=== PATIENT | female | born 1990 | race Caucasian/White ===

== ENCOUNTER 2017-01-08 22:29 | Emergency (ER) | payer OTHER ==
[~2017-01-08] VITALS: Ht 149.9 cm; Wt 60.7 kg
[~2017-01-08 22:29] MED LIST: ALBU18HF IH; DIPH-121 PO; ONDA4TAB10 PO; PRED15SO46 PO
[2017-01-08] MEDS ORDERED: IV NORMAL SALINE 1,000ML 1,000 ML IV SCH (23:19)
[2017-01-08] MEDS ORDERED: MORPHINE SULFATE 4 MG/ML DISP.SYRIN. IV/SQ PRN (23:30)
[2017-01-08] MEDS ORDERED: FAMOTIDINE 20 MG/2 ML VIAL IVP ONE (23:30)
[2017-01-08] MEDS ORDERED: KETOROLAC 30 MG/ML VIAL. IV ONE (23:30)
[2017-01-08] MEDS ORDERED: ONDANSETRON PF 4 MG/2 ML VIAL. IV ONE (23:30)
[2017-01-08 23:56] LABS: BASO # 0.1 x10^3/uL (0.0-0.2); BASO % 0 % (0-3); EOS # 0.1 x10^3/uL (0.0-0.7); EOS % 1 % (0-3); HEMATOCRIT 32.6 % (36.0-47.0); LYMPH # 1.6 x10^3/uL (1.0-4.8); LYMPH % 10 % (24-48); MEAN CORPUSCULAR HEMOGLOBIN 24 pg (25-35); MEAN CORPUSCULAR HGB CONC 31 g/dL (31-37); MEAN CORPUSCULAR VOLUME 78 fL (79-100); MONO # 0.7 x10^3/uL (0.0-1.1); MONO % 4 % (0-9); NEUT # 13.9 x10^3uL (1.8-7.7); NEUT % 85 % (31-73); PLATELET COUNT 306 x10^3/uL (140-400); RED BLOOD COUNT 4.19 x10^6/uL (3.50-5.40); RED CELL DISTRIBUTION WIDTH 18.7 % (11.5-14.5); WHITE BLOOD COUNT 16.4 x10^3/uL (4.0-11.0)
[2017-01-09 00:02] LABS: AMPHETAMINE/METHAMPHETAMINE NEG (NEG); BARBITURATES NEG (NEG); BENZODIAZEPINES NEG (NEG); CANNABINOIDS POS (NEG); COCAINE NEG (NEG); METHADONE NEG (NEG); OPIATES POS (NEG); PHENCYCLIDINE NEG (NEG)
--- NOTE | 2017-01-09 00:04 | PHYS DOC ---
General Chief Complaint: ABDOMINAL PAIN Stated Complaint: VOMITING,ABD PAIN Time Seen by MD: 23:04 Source: patient Exam Limitations: no limitations Problems: History of Present Illness Initial Comments Patient is a 26-year-old female brought to the ED by parent with abdominal discomfort and vomiting. Patient has history of bipolar disorder GERD and irritable bowel syndrome, she also has history of chronic nausea and vomiting. Patient states that for the past few days she has had increased vomiting/diarrhea and upper abdominal discomfort. She says she's also had loose stools last bowel movement was earlier today described as watery no blood noted. Patient denies travel or bad food exposure she has seen no blood in her emesis and denies fever chills sweats or myalgias. She is a vague historian, she denies relation of by mouth intake or type of by mouth intake and correlation of symptoms. Discomfort is upper abdomen described as crampy and achy moderate in intensity worse with certain movements and better with rest. No radiating pain symptoms, specifically no radiation to back/flank/shoulder blade. Appetite is intact. Patient denies as she is not heterosexual. Recently diagnosed with gallstones. Timing/Duration: unsure Severity: moderate Modifying Factors: worse with movement, improves with rest Associated Symptoms: nausea/vomiting, other Allergies: Coded Allergies: No Known Drug Allergies (Unverified , 12/02/15) Past Medical History Medical History: other (cerebral palsy, bipolar disorder, GERD, irritable bowel syndrome, constipation, chronic vomiting) Surgical History: noncontributory Social History Smoker: cigarettes Alcohol: none Drugs: marijuana Review of Systems Constitutional: denies chills, denies diaphoresis, denies fever, denies malaise Respiratory: denies cough, denies shortness of breath, denies wheezing Cardiovascular: denies chest pain, denies palpitations, denies syncope Gastrointestinal: see HPI Genitourinary: denies dysuria, denies frequency, denies hematuria Musculoskeletal: denies back pain, denies joint swelling, denies neck pain Psychiatric/Neurological: see HPI Physical Exam General Appearance: no apparent distress Eyes: bilateral eye normal inspection, bilateral eye PERRL, bilateral eye EOMI Ear, Nose, Throat: hearing grossly normal, normal ENT inspection (scabs over her dry lower lip, patient states this is chronic) Neck: non-tender, supple Respiratory: lungs clear, normal breath sounds Cardiovascular: normal peripheral pulses, regular rate, rhythm Gastrointestinal: soft (nondistended, negative McBurney positive upper abdominal discomfort no rebound or guarding no masses palpated bowel sounds are normal) Rectal: deferred Back: no CVA tenderness, no vertebral tenderness Extremities: non-tender, normal inspection Neurologic/Psychiatric: slack line yarder II-XII nml as tested, no motor/sensory deficits, alert, other (flat affect no suicidal/homicidal ideation no hallucinations noted ) Skin: pallor (poor skin turgor, tattoos over nearly all exposed skin) Orders, Labs, Meds Acute abdomen series: No acute cardio pulmonary process noted, a sentinel loop noted right upper quadrant otherwise nonobstructive bowel gas pattern noted Pertinent labs: White blood cells 16.4, bands 9, hemoglobin 10, MCV 78, AST 74, lipase 299, urinalysis positive for yeast, urine drug screen positive for opiates and marijuana Time in the department greater than 4 hours with prolonged workup. No vomiting in the ED, patient states her pain has nearly resolved with medications. Workup reveals cholelithiasis without evidence of cholecystitis. IMPRESSIONS: Abdominal discomfort with nausea vomiting and diarrhea likely viral gastroenteritis Cholelithiasis Vulvovaginal Candidiasis Marijuana Abuse Microcytic anemia Hypovolemia Tobaccoism Departure Time of Disposition: 02:33 Diagnosis: cholelithiasis, gastroenteritis, anemia, dehydrati Condition: STABLE Patient Instructions: Cholelithiasis, [id number], Dehydration, Adult, Easy-to -Read, Viral Gastroenteritis, [id number] Additional Instructions: Discontinue tobacco/marijuana abuse, seek medical assistance if necessary. Aggressive hydration with Gatorade or water. Clear liquids today, advance to bland diet as tolerated tomorrow. Avoid fried and fatty foods until cleared by your doctor. [id number] ibuprofen for baseline pain control. Prescription: Cipro, Flagyl, Zofran ODT, [place] 5 mg quantity 20 No alcohol intake while taking Flagyl. Take medications with food to avoid nausea and vomiting. Increase fluid intake and take [id number] stool softeners while taking [place] to avoid constipation. Follow-up with Dr. Richardson on Tuesday for a recheck and further evaluation/ outpatient referrals as necessary. Return to the ED with new or changing symptoms. HANSA STEPHENS DO Jan 09, 2017 00:04
[2017-01-09 00:07] LABS: ALBUMIN 3.8 g/dL (3.4-5.0); CALCIUM 8.7 mg/dL (8.5-10.1); CREATININE 0.6 mg/dL (0.6-1.0); GFR 119.9; POTASSIUM 3.7 mmol/L (3.5-5.1); TOTAL BILIRUBIN 0.3 mg/dL (0.2-1.0); TOTAL PROTEIN 7.6 g/dL (6.4-8.2)
[2017-01-09 00:15] LABS: CLARITY,URINE CLOUDY; COLOR,URINE YELLOW
[2017-01-09 00:16] LABS: BACTERIA,URINE FEW /HPF (0-FEW); BILIRUBIN,URINE NEG (NEG); GLUCOSE,URINE NEG (NEG); NITRITE,URINE NEG (NEG); RBC,URINE RARE /HPF (0-2); SQUAMOUS EPITHELIAL CELL,UR FEW /LPF; UROBILINOGEN,URINE 1 mg/dL (0.2 mg/dL); WBC,URINE OCC /HPF (0-4)
[2017-01-09 00:17] LABS: AMORPHOUS SEDIMENT,UR PRESENT /HPF; YEAST,URINE PRESENT /HPF
[2017-01-09 00:30] LABS: % BANDS 9 % (0-9); % LYMPHS 15 % (24-48); % MONOS 4 % (0-10); % SEGS 72 % (35-66); PLT ESTIMATE ADEQUATE (ADEQUATE)
[2017-01-09 00:31] LABS: ANISOCYTOSIS SLIGHT; HYPERSEGS PRESENT; HYPOCHROMIA SLIGHT; MICROCYTOSIS SLIGHT
--- NOTE | 2017-01-09 01:57 | RAD ---
Examination: Ultrasound right upper quadrant HISTORY: History of right upper quadrant pain COMPARISON: None available FINDINGS: The visualized pancreas grossly appears unremarkable. The visualized aorta, IVC appear patent. The liver measures 15.5 cm There are multiple echogenicities identified within the gallbladder likely stones. The gallbladder wall thickness measures 2 mm. The common bile duct measures 6.2 mm in transverse dimension. The right kidney measures 11.1 x 4.0 x 4.2 cm. IMPRESSION: 1. Multiple echogenicities identified within the gallbladder likely gallstones. The common bile duct is within upper limits of normal. Electronically signed by: Ronny Guerrero MD (01/09/2017 1:54 AM)
[2017-01-09 02:15] VITALS: BP 122/70
[2017-01-09] MEDS ORDERED: CIPROFLOXACIN HCL 500 MG TABLET PO ONE (03:00)
[2017-01-09] MEDS ORDERED: metroNIDAZOLE 500 MG TABLET PO ONE (03:00)
[2017-01-09] MEDS ORDERED: PROMETHAZINE IM 25 MG/ML VIAL IM ONE (03:00)
--- NOTE | 2017-01-09 08:04 | RAD ---
Indication abdominal pain. Nausea and vomiting. A single view of the chest as well as flat and upright films of the abdomen were obtained. Note is made of a previous examination of the chest and abdomen 05/25/2012. The heart and pulmonary vessels are normal. The lungs are clear. There is no free air. The abdominal gas pattern is normal. No organomegaly or abnormal calculi are seen. IMPRESSION: No acute or significant finding seen in the chest or abdomen on plain films
== END 2017-01-09 02:55 | disposition home or self-care (01) ==
LOC: ER 22:29
DX: K80.20 Calculus of gallbladder without cholecystitis without obstruction (principal); K52.9 Noninfective gastroenteritis and colitis, unspecified; B37.3 Candidiasis of vulva and vagina; D50.9 Iron deficiency anemia, unspecified; E86.1 Hypovolemia; F12.10 Cannabis abuse, uncomplicated; F17.210 Nicotine dependence, cigarettes, uncomplicated; G80.9 Cerebral palsy, unspecified; K21.9 Gastro-esophageal reflux disease without esophagitis; F31.9 Bipolar disorder, unspecified; K58.9 Irritable bowel syndrome, unspecified
CPT/HCPCS: 36415; 74022; 76705; 80053; 80305; 80320; 81001; 83690; 85007; 85027; 96361; 96372; 96374; 96375; 99285; J1885; J2270; J2405; J2550; S0028; G0480; G0481; J7030

== ENCOUNTER 2017-09-05 22:51 | Emergency (ER) | payer OTHER ==
[~2017-09-05] VITALS: Ht 149.9 cm; Wt 60.7 kg
--- NOTE | 2017-09-05 23:03 | PHYS DOC ---
Past History Past Medical History: Bipolar, Constipation, GERD, IBS, Other Past Surgical History: No Surgical History Smoking: Cigarettes, Quit Less Than 1 Year Alcohol Use: None Drug Use: Marijuana Adult General [facility] HPI Patient is a 27-year-old female presenting to the emergency department for evaluation of abdominal pain and flank pain nausea vomiting. Symptoms have been going on for at least 2-3 days and she has not been able to hold anything down by mouth. She denies any fevers or chills to me. Abdominal pain is diffuse and it radiates to her bilateral flanks is associated with dysuria and no hematuria vaginal bleeding vaginal discharge diarrhea or constipation. Emesis is nonbloody nonbilious. Review of Systems Review of Systems Constitutional: Denies fever or chills [] HENT: Denies nasal congestion or sore throat [] Respiratory: Denies cough or shortness of breath [] Cardiovascular: No additional information not addressed in HPI [] GI: + abdominal pain, nausea, vomiting. No bloody stools or diarrhea [] : + dysuria Musculoskeletal: + back pain All other systems were reviewed and found to be within normal limits, except as documented in this note. Allergies Allergies Allergies Coded Allergies Type Severity Reaction Last Updated Verified No Known Drug Allergies 12/02/15 No Physical Exam Physical Exam Constitutional: Well developed, well nourished, no acute distress, non-toxic appearance. [] Cardiovascular:Heart rate regular rhythm, no murmur [] Lungs & Thorax: Bilateral breath sounds clear to auscultation [] Abdomen: Bowel sounds normal, soft, + diffuse tenderness, no rebound or guarding , no masses, no pulsatile masses. [] Skin: Warm, dry, no erythema, no rash. [] Back: + BL CVA tenderness. [] EKG EKG [] Radiology/Procedures Radiology/Procedures CT scan abdomen and pelvis with contrast 09/06/2017 CLINICAL HISTORY: Abdominal pain with nausea and vomiting for 2 days. TECHNIQUE: After the intravenous administration of 75 cc of Omnipaque 300, contiguous, 5 mm axial sections were obtained through the abdomen and pelvis. One or more of the following individualized dose reduction techniques were utilized for this study: 1. Automated exposure control. 2. Adjustment of the mA and/or kV according to patient size. 3. Use of iterative reconstruction technique. FINDINGS: Comparison is made to the patient's ultrasound of the right upper quadrant abdomen dated 01/09/2017. Images through the lung bases demonstrate minimal dependent subsegmental atelectasis bilaterally. There is a large sliding hiatal hernia. The liver, spleen, pancreas, adrenal glands and kidneys are within normal limits. The abdominal aorta tapers normally. Surgical clips are seen within the gallbladder fossa consistent with a cholecystectomy. No free fluid or free air is seen within the abdomen. There is no evidence of bowel obstruction. The appendix is well-visualized and is within normal limits. Images through the pelvis demonstrate the urinary bladder distended with urine. Calcifications are seen within the pelvis consistent with phleboliths. No adnexal mass is seen. No free fluid is noted. Minimal S-shaped curvature of the thoracolumbar spine is seen. IMPRESSION: No acute abnormality is seen. Electronically signed by: Oliver Rocha MD (09/06/2017 1:57 AM) [facility] DICTATED AND SIGNED BY: OLIVER ROCHA MD DATE: 09/06/17 0152 Course & Med Decision Making Course & Med Decision Making Patient with symptoms consistent with urinary tract infection and her urinalysis did show positive nitrates and bacteria and white blood cells. She also has ketonuria and continues to have some pain with nausea. She will get IV fluids and Rocephin and observed. I will check CT and labs as well. Patient's workup is significant for urinary tract infection which is likely pyelonephritis given she is having back pain and leukocytosis. She does not meet any definitive indication for admission given she can drink fluids now and she is not immunocompromised. Patient has low magnesium which she will given supplement here and she is told to drink plenty of fluids eat a good diet at home. She wants a refill for her Prozac so I will give her a prescription for this prescribe her Barnhart Zofran Cipro and have her follow with primary care provider within 2-3 days and come back to the ED sooner with worsening pain fevers vomiting or other general concerns. Patient aware and agreeable with plan and verbalized understanding of the above instructions. Dragon Disclaimer Dragon Disclaimer This electronic medical record was generated, in whole or in part, using a voice recognition dictation system. Departure Departure: Impression: Primary Impression: Pyelonephritis Additional Impressions: Leukocytosis Hypomagnesemia Ketonuria Disposition: HOME, SELF-CARE Condition: STABLE Referrals: PCP,NO (PCP) Patient Instructions: Pyelonephritis, Adult Additional Instructions: TAKE 400MG OF IBUPROFEN EVERY 6 HOURS AND THE NORCO FOR BREAKTHROUGH PAIN. DRINK PLENTY OF FLUIDS INCLUDING WATER AND GATORADE. EAT A SOFT NON-IRRITATING DIET. FOLLOW WITH A PCP WITHIN 2-3 DAYS AND COME BACK TO THE ED SOONER WITH ANY NEW OR WORSENING SYMPTOMS. THANK YOU! Scripts Fluoxetine Hcl (FLUOXETINE HCL) 10 Mg Tablet 1 TAB PO DAILY, #30 TAB 0 Refills Prov: VIVIANA PRETTY DO 09/06/17 Hydrocodone Bit/Acetaminophen (NORCO 5-325 TABLET) 1 Each Tablet 1 TAB PO PRN Q6HRS Y for PAIN, #14 TAB 0 Refills Prov: VIVIANA PRETTY DO 09/06/17 Ondansetron (ZOFRAN ODT) 4 Mg Tab.rapdis 1 TAB SL Q8HRS, #10 TAB Prov: VIVIANA PRETTY DO 09/06/17 Ciprofloxacin Hcl (CIPROFLOXACIN HCL) 500 Mg Tablet 1 TAB PO BID, #14 TAB Prov: VIVIANA PRETTY DO 09/06/17 Problem Qualifiers VIVIANA PRETTY DO Sep 05, 2017 23:03
[2017-09-05] MEDS ORDERED: ONDANSETRON ODT 4 MG TAB.RAPDIS ONE (23:09)
[2017-09-05] MEDS ORDERED: ONDANSETRON ODT 4 MG TAB.RAPDIS PO ONE ×2 (23:15→23:30)
[2017-09-05] MEDS ORDERED: HYDROcodone/APAP 5/325MG 1 TAB TABLET PO ONE (23:30)
[2017-09-06] MEDS ORDERED: OLANZapine 2.5 MG TABLET ONE (00:32)
[2017-09-06 00:33] LABS: CLARITY,URINE HAZY; COLOR,URINE YELLOW
[2017-09-06 00:34] LABS: BACTERIA,URINE FEW /HPF (0-FEW); BILIRUBIN,URINE NEG (NEG); GLUCOSE,URINE NEG (NEG); NITRITE,URINE POS (NEG); RBC,URINE OCC /HPF (0-2); SQUAMOUS EPITHELIAL CELL,UR MOD /LPF; UROBILINOGEN,URINE 0.2 mg/dL (0.2 mg/dL)
[2017-09-06] MEDS ORDERED: IV NORMAL SALINE 1,000ML 1,000 ML IV ONE (01:00)
[2017-09-06] MEDS ORDERED: cefTRIAXone IV Push 2 GM VIAL. IVP ONE (01:00)
[2017-09-06] MEDS ORDERED: CONTRAST GIVEN MC PRN (01:00)
[2017-09-06] MEDS ORDERED: ONDANSETRON PF 4 MG/2 ML VIAL. IV ONE (01:00)
[2017-09-06] MEDS ORDERED: IOHEXOL 300 MG/ML 75 ML VIAL. IV ONE (01:00)
[2017-09-06 01:42] LABS: ALBUMIN 4.2 g/dL (3.4-5.0); CALCIUM 9.3 mg/dL (8.5-10.1); CREATININE 0.7 mg/dL (0.6-1.0); GFR 99.6; MAGNESIUM 1.6 mg/dL (1.8-2.4); POTASSIUM 3.9 mmol/L (3.5-5.1); TOTAL BILIRUBIN 0.3 mg/dL (0.2-1.0); TOTAL PROTEIN 8.4 g/dL (6.4-8.2)
[2017-09-06 01:54] LABS: BASO % 0 % (0-3); EOS # 0.2 x10^3/uL (0.0-0.7); EOS % 2 % (0-3); HEMATOCRIT 33.4 % (36.0-47.0); HEMOGLOBIN 10.6 g/dL (12.0-15.5); LYMPH # 2.6 x10^3/uL (1.0-4.8); LYMPH % 18 % (24-48); MEAN CORPUSCULAR HEMOGLOBIN 26 pg (25-35); MEAN CORPUSCULAR HGB CONC 32 g/dL (31-37); MEAN CORPUSCULAR VOLUME 81 fL (79-100); MONO # 0.7 x10^3/uL (0.0-1.1); MONO % 5 % (0-9); NEUT # 10.9 x10^3uL (1.8-7.7); NEUT % 75 % (31-73); PLATELET COUNT 407 x10^3/uL (140-400); RED BLOOD COUNT 4.13 x10^6/uL (3.50-5.40); RED CELL DISTRIBUTION WIDTH 17.7 % (11.5-14.5); WHITE BLOOD COUNT 14.4 x10^3/uL (4.0-11.0)
--- NOTE | 2017-09-06 02:01 | RAD ---
CT scan abdomen and pelvis with contrast 09/06/2017 CLINICAL HISTORY: Abdominal pain with nausea and vomiting for 2 days. TECHNIQUE: After the intravenous administration of 75 cc of Omnipaque 300, contiguous, 5 mm axial sections were obtained through the abdomen and pelvis. One or more of the following individualized dose reduction techniques were utilized for this study: 1. Automated exposure control. 2. Adjustment of the mA and/or kV according to patient size. 3. Use of iterative reconstruction technique. FINDINGS: Comparison is made to the patient's ultrasound of the right upper quadrant abdomen dated 01/09/2017. Images through the lung bases demonstrate minimal dependent subsegmental atelectasis bilaterally. There is a large sliding hiatal hernia. The liver, spleen, pancreas, adrenal glands and kidneys are within normal limits. The abdominal aorta tapers normally. Surgical clips are seen within the gallbladder fossa consistent with a cholecystectomy. No free fluid or free air is seen within the abdomen. There is no evidence of bowel obstruction. The appendix is well-visualized and is within normal limits. Images through the pelvis demonstrate the urinary bladder distended with urine. Calcifications are seen within the pelvis consistent with phleboliths. No adnexal mass is seen. No free fluid is noted. Minimal S-shaped curvature of the thoracolumbar spine is seen. IMPRESSION: No acute abnormality is seen. Electronically signed by: Oliver Dhillon MD (09/06/2017 1:57 AM) [facility]
[2017-09-06] MEDS ORDERED: HYDR-971 PO (02:24)
[2017-09-06] MEDS ORDERED: FLUO10TA PO (02:24)
[2017-09-06] MEDS ORDERED: CIPR500T PO (02:24)
[2017-09-06] MEDS ORDERED: ONDA4TAB10 SL (02:24)
[2017-09-06] MEDS ORDERED: MAGNESIUM OXIDE 400 MG TABLET PO ONE (02:45)
[2017-09-06 03:01] VITALS: BP 123/84
== END 2017-09-06 03:15 | disposition home or self-care (01) ==
LOC: ER 22:51
DX: N12 Tubulo-interstitial nephritis, not specified as acute or chronic (principal); R82.4 Acetonuria; E83.42 Hypomagnesemia; D72.829 Elevated white blood cell count, unspecified; K21.9 Gastro-esophageal reflux disease without esophagitis; K58.9 Irritable bowel syndrome, unspecified; F12.10 Cannabis abuse, uncomplicated; Z87.891 Personal history of nicotine dependence
CPT/HCPCS: 36415; 74177; 80053; 81001; 81025; 82550; 83690; 83735; 85025; 87086; 96361; 96374; 96375; 99285; J0696; J2405; J3010; Q0162; Q9967; J7030

== ENCOUNTER 2017-09-08 20:39 | Emergency (ER) | payer OTHER ==
[~2017-09-08] VITALS: Ht 149.9 cm; Wt 53.9 kg
[~2017-09-08 20:39] MED LIST changes: +CIPR500T PO; +FLUO10TA PO; +HYDR-971 PO; +ONDA4TAB10 SL
--- NOTE | 2017-09-08 21:06 | ED.ADGEN ---
Past History Past Medical History: Anxiety, Bipolar, Constipation, GERD, IBS, Other Past Surgical History: Cholecystectomy Smoking: Cigarettes, Quit Less Than 1 Year Alcohol Use: None Drug Use: Marijuana Adult General Chief Complaint Chief Complaint ".. I having an anxiety attack.... my bipolar is out of control... and I am out my meds... and my ovary hurts on the Lt.... and I have a UTI too.... I was here the other day... I have not followed up with Out pt. counseling center yet..." .. " I am ready to go crazy... I got to have something for my bipolar..." HPI HPI Patient is a 27 year old female who presents with above hx and complaints bipolar disorder. Patient states she has been out of meds and has not been able to get them refilled. Patient has a follow-up appointment on Tuesday at the counseling center. Patient also complaining of left lower abdomen pain and pelvic pain. She has a long history of irritable bowel disorder. Patient has long history of constipation from chronic pain meds. Pt. localizes her pain in left lower quadrant. Patient denies any trauma. Denies any bad food. No history of recent travel. No specific ill contacts. Patient has had a mild vaginal discharge. Patient recently diagnosed with urinary tract infection. Patient states the pain has not gotten any better. Patient has had previous history of ovarian cyst. Patient's had 5 lifetime sex partners. Patient currently in a female relationship. There has been no use of the dildos or insertion of objects for her sexual gratification. No history of trauma. No history of recent abuse. No prior history of STDs. Review of Systems Review of Systems Constitutional: Denies fever or chills [] Eyes: Denies change in visual acuity, redness, or eye pain [] HENT: Denies nasal congestion or sore throat [] Respiratory: Denies cough or shortness of breath [] Cardiovascular: No additional information not addressed in HPI [] GI: Complaints of abdominal pain, nausea, and constipation : Complaints of dysuria and vaginal discharge Musculoskeletal: Denies back pain or joint pain [] Integument: Denies rash or skin lesions [] Neurologic: Denies headache, focal weakness or sensory changes [] Endocrine: Denies polyuria or polydipsia [] All other systems were reviewed and found to be within normal limits, except as documented in this note. Family History Family History Noncontributory Current Medications Current Medications Current Medications Medications (Trade) Dose Ordered Sig/[place] Start Time Stop Time Status Last Admin Dose Admin Diphenhydramine HCl (Benadryl) 50 mg 1X ONCE 09/08/17 22:30 09/08/17 22:31 DC 09/08/17 22:28 50 MG Fluoxetine HCl (PROzac) 40 mg 1X ONCE 09/08/17 22:30 09/08/17 22:31 DC 09/08/17 22:26 40 MG Info (Do NOT chart on this entry -- for MONITORING) 1 each PRN DAILY PRN 09/09/17 00:45 09/09/17 03:26 DC Iohexol (Omnipaque 240 Mg/ml) 50 ml 1X ONCE 09/09/17 00:45 09/09/17 00:46 DC 09/09/17 01:13 50 ML Iohexol (Omnipaque 300 Mg/ml) 75 ml 1X ONCE 09/09/17 00:45 09/09/17 00:46 DC 09/09/17 01:13 75 ML Lorazepam (Ativan) 2 mg 1X ONCE 09/08/17 22:30 09/08/17 22:31 DC 09/08/17 22:24 2 MG Magnesium Citrate (Citroma) 296 ml 1X ONCE 09/09/17 02:00 09/09/17 02:12 DC 09/09/17 02:30 296 ML Sodium Chloride 1,000 ml @ 1,000 mls/hr Q1H 09/08/17 22:45 09/08/17 23:44 DC 09/08/17 00:10 1,000 MLS/HR See nursing for home meds Allergies Allergies Allergies Coded Allergies Type Severity Reaction Last Updated Verified No Known Drug Allergies 09/09/17 No Physical Exam Physical Exam Constitutional: in acute emotional distress, non-toxic appearance. [] HENT: Normocephalic, atraumatic, bilateral external ears normal, oropharynx moist, no oral exudates, nose normal. [] Eyes: PERRLA, EOMI, conjunctiva normal, no discharge. [] Neck: Normal range of motion, no tenderness, supple, no stridor. [] Cardiovascular:Heart rate regular rhythm, no murmur [] Lungs & Thorax: Bilateral breath sounds equal apexes scattered wheezes on auscultation [] Abdomen: Bowel sounds normal, soft, left lower quadrant tenderness, no masses, no pulsatile masses. Distended. Hard stool. Mild vaginal discharge. No cervical motion tenderness. Old surgical scar.-Cholecystectomy Skin: Warm, dry, no erythema, no rash. Tattoos Back: No tenderness, no CVA tenderness. [] Extremities: No tenderness, no cyanosis, no clubbing, ROM intact, no edema. Legs are stiff and contractures. Neurologic: Alert and oriented X 3, lower limb motor function deficits-chronic, no gross sensory function deficits from her baseline, no focal deficits noted from her baseline Psychologic: Affect extremely anxious, tearful, agitated ,judgement impulsive and poor insight, mood depressed. Current Patient Data Lab Results Laboratory Tests Test 09/08/17 21:48 09/08/17 21:55 09/08/17 22:54 09/09/17 00:10 Urine Collection Type Unknown Urine Color Yellow Urine Clarity Hazy Urine pH 5.0 Urine Specific [place] >=1.030 Urine Protein Neg (NEG-TRACE) Urine Glucose (UA) Neg mg/dL (NEG) Urine Ketones (Stick) Trace mg/dL (NEG) Urine Blood Trace (NEG) Urine Nitrite Neg (NEG) Urine Bilirubin Neg (NEG) Urine Urobilinogen Dipstick 0.2 mg/dL (0.2 mg/dL) Urine Leukocyte Esterase Neg (NEG) Urine RBC 0 /HPF (0-2) Urine WBC Rare /HPF (0-4) Urine Squamous Epithelial Cells Mod /LPF Urine Bacteria 0 /HPF (0-FEW) Urine Opiates Screen Pos (NEG) Urine Methadone Screen Neg (NEG) Urine Barbiturates Neg (NEG) Urine Phencyclidine Screen Neg (NEG) Urine Amphetamine/Methamphetamine Neg (NEG) Urine Benzodiazepines Screen Neg (NEG) Urine Cocaine Screen Neg (NEG) Urine Cannabinoids Screen Pos (NEG) Urine Ethyl Alcohol Neg (NEG) POC Urine HCG, Qualitative hcg negative (Negative) White Blood Count 10.6 x10^3/uL (4.0-11.0) Red Blood Count 3.85 x10^6/uL (3.50-5.40) Hemoglobin 10.3 g/dL (12.0-15.5) L Hematocrit 31.4 % (36.0-47.0) L Mean Corpuscular Volume 81 fL (79-100) Mean Corpuscular Hemoglobin 27 pg (25-35) Mean Corpuscular Hemoglobin Concent 33 g/dL (31-37) Red Cell Distribution Width 17.9 % (11.5-14.5) H Platelet Count 373 x10^3/uL (140-400) Neutrophils (%) (Auto) 69 % (31-73) Lymphocytes (%) (Auto) 23 % (24-48) L Monocytes (%) (Auto) 5 % (0-9) Eosinophils (%) (Auto) 3 % (0-3) Basophils (%) (Auto) 1 % (0-3) Neutrophils # (Auto) 7.3 x10^3uL (1.8-7.7) Lymphocytes # (Auto) 2.4 x10^3/uL (1.0-4.8) Monocytes # (Auto) 0.5 x10^3/uL (0.0-1.1) Eosinophils # (Auto) 0.3 x10^3/uL (0.0-0.7) Basophils # (Auto) 0.1 x10^3/uL (0.0-0.2) Prothrombin Time 10.4 SEC (9.4-11.4) Prothrombin Time INR 1.0 (0.9-1.1) PTT 25 SEC (23-33) Sodium Level 137 mmol/L (136-145) Potassium Level 4.0 mmol/L (3.5-5.1) Chloride Level 100 mmol/L (98-107) Carbon Dioxide Level 26 mmol/L (21-32) Anion Gap 11 (6-14) Blood Urea Nitrogen 13 mg/dL (7-20) Creatinine 0.5 mg/dL (0.6-1.0) L Estimated GFR (Cockcroft-Gault) 146.9 Glucose Level 80 mg/dL (70-99) Calcium Level 9.5 mg/dL (8.5-10.1) Total Bilirubin 0.2 mg/dL (0.2-1.0) Direct Bilirubin < 0.1 mg/dL (0.0-0.2) Aspartate Amino Transferase (AST) 28 U/L (15-37) Alanine Aminotransferase (ALT) 51 U/L (14-59) Alkaline Phosphatase 86 U/L (46-116) Total Protein 8.2 g/dL (6.4-8.2) Albumin 4.0 g/dL (3.4-5.0) Amylase Level 56 U/L (25-115) Lipase 106 U/L (73-393) Microbiology 09/08/17 Wet Prep - Final, Complete Microbiology 09/08/17 Wet Prep - Final, Complete EKG EKG [] Radiology/Procedures Radiology/Procedures I interpretation of acute abdomen film shows stool in right quadrant as well as clips from previous surgery. A few isolated loops. No free air under the diaphragm.[] Course & Med Decision Making Course & Med Decision Making Pertinent Labs and Imaging studies reviewed. (See chart for details) Pt. follow up pending cultures and labs. Clear fluid diet only x 48 hrs. Expect some increased pain and cramping with passage of stool. Keep follow up with Counseling center. Must follow up with primary. [] Final Impression Final Impression 1. Bipolar 2. Anxiety 3. Abd. Pain[] 4. Chronic pain 5. Abdomen pain- 6. Constipation Problems: Dragon Disclaimer Dragon Disclaimer This electronic medical record was generated, in whole or in part, using a voice recognition dictation system. FRANCIS KWONG MD Sep 08, 2017 21:06
[2017-09-08] MEDS ORDERED: FLUO40CA2 PO (22:13)
[2017-09-08] MEDS ORDERED: LORA2TAB89 PO (22:14)
[2017-09-08 22:15] LABS: BACTERIA,URINE 0 /HPF (0-FEW); BILIRUBIN,URINE NEG (NEG); CLARITY,URINE HAZY; COLOR,URINE YELLOW; GLUCOSE,URINE NEG (NEG); NITRITE,URINE NEG (NEG); RBC,URINE 0 /HPF (0-2); SQUAMOUS EPITHELIAL CELL,UR MOD /LPF; UROBILINOGEN,URINE 0.2 mg/dL (0.2 mg/dL); WBC,URINE RARE /HPF (0-4)
[2017-09-08] MEDS ORDERED: LORazepam 1 MG TABLET PO ONE (22:30)
[2017-09-08] MEDS ORDERED: FLUoxetine HCL 20 MG CAPSULE PO ONE (22:30)
[2017-09-08] MEDS ORDERED: diphenhydrAMINE HCL 25 MG CAPSULE PO ONE (22:30)
[2017-09-08 22:36] LABS: AMPHETAMINE/METHAMPHETAMINE NEG (NEG); BARBITURATES NEG (NEG); BENZODIAZEPINES NEG (NEG); CANNABINOIDS POS (NEG); COCAINE NEG (NEG); METHADONE NEG (NEG); OPIATES POS (NEG); PHENCYCLIDINE NEG (NEG)
[2017-09-08] MEDS ORDERED: IV NORMAL SALINE 1,000ML 1,000 ML IV SCH (22:45)
[2017-09-08 23:14] LABS: BASO # 0.1 x10^3/uL (0.0-0.2); BASO % 1 % (0-3); EOS # 0.3 x10^3/uL (0.0-0.7); EOS % 3 % (0-3); HEMATOCRIT 31.4 % (36.0-47.0); HEMOGLOBIN 10.3 g/dL (12.0-15.5); LYMPH # 2.4 x10^3/uL (1.0-4.8); LYMPH % 23 % (24-48); MEAN CORPUSCULAR HEMOGLOBIN 27 pg (25-35); MEAN CORPUSCULAR HGB CONC 33 g/dL (31-37); MEAN CORPUSCULAR VOLUME 81 fL (79-100); MONO # 0.5 x10^3/uL (0.0-1.1); MONO % 5 % (0-9); NEUT # 7.3 x10^3uL (1.8-7.7); NEUT % 69 % (31-73); PLATELET COUNT 373 x10^3/uL (140-400); RED BLOOD COUNT 3.85 x10^6/uL (3.50-5.40); RED CELL DISTRIBUTION WIDTH 17.9 % (11.5-14.5); WHITE BLOOD COUNT 10.6 x10^3/uL (4.0-11.0)
[2017-09-08] MEDS ORDERED: IOHEXOL 240 MG/ML 50ML VIAL. ONE (23:30)
[2017-09-09 00:45] LABS: ALK PHOS 86 U/L (46-116); ALT (SGPT) 51 U/L (14-59); AMYLASE 56 U/L (25-115); ANION GAP 11 (6-14); AST (SGOT) 28 U/L (15-37); BLOOD UREA NITROGEN 13 mg/dL (7-20); CALCIUM 9.5 mg/dL (8.5-10.1); CARBON DIOXIDE 26 mmol/L (21-32); CHLORIDE 100 mmol/L (98-107); CREATININE 0.5 mg/dL (0.6-1.0); DIRECT BILIRUBIN < 0.1 mg/dL (0.0-0.2); GFR 146.9; GLUCOSE 80 mg/dL (70-99); LIPASE 106 U/L (73-393); SODIUM 137 mmol/L (136-145); TOTAL BILIRUBIN 0.2 mg/dL (0.2-1.0); TOTAL PROTEIN 8.2 g/dL (6.4-8.2)
[2017-09-09] MEDS ORDERED: IOHEXOL 240 MG/ML 50ML VIAL. PO ONE (00:45)
[2017-09-09] MEDS ORDERED: CONTRAST GIVEN MC PRN (00:45)
[2017-09-09] MEDS ORDERED: IOHEXOL 300 MG/ML 75 ML VIAL. IV ONE (00:45)
--- NOTE | 2017-09-09 01:35 | RAD ---
CT scan of the abdomen and pelvis with contrast September 09, 2017 CLINICAL HISTORY: Abdominal and pelvic pain. TECHNIQUE: After the oral and intravenous administration of contrast, contiguous, 5 mm axial sections were obtained through the abdomen and pelvis. 75 cc of Omnipaque 300 were administered intravenously during this examination. One or more of the following individualized dose reduction techniques were utilized for this study: 1. Automated exposure control. 2. Adjustment of the mA and/or kV according to patient size. 3. Use of iterative reconstruction technique. FINDINGS: Comparison study is dated September 06, 2017. Images through the lung bases demonstrate minimal dependent subsegmental atelectasis bilaterally. There is a moderate sized sliding hiatal hernia. The liver, spleen, pancreas, adrenal glands and kidneys are within normal limits. The abdominal aorta tapers normally. Surgical clips are seen within the gallbladder fossa consistent with a cholecystectomy. No free fluid or free air is within the abdomen. Air and stool seen throughout the colon. The appendix is well-visualized and is within normal limits. There is no evidence of bowel obstruction. Images through the pelvis demonstrate the urinary bladder distended with urine. A 1 cm rounded low-attenuation structure is seen in the right adnexa which likely represents a dominant follicle. No free fluid is seen. The osseous structures are unchanged. IMPRESSION: No acute abnormality is seen. Electronically signed by: Oliver Dhillon MD (09/09/2017 1:31 AM) [facility]
[2017-09-09] MEDS ORDERED: MAGNESIUM CITRATE 296 ML SOLUTION. PO ONE (02:00)
[2017-09-09] MEDS ORDERED: PEG4000S8 PO (02:25)
[2017-09-09 02:35] VITALS: BP 116/71
--- NOTE | 2017-09-09 07:44 | RAD ---
Abdominal series including frontal chest radiograph and 2 views of the abdomen 09/08/2017 Indication: Abdominal pain Comparison study: Abdominal series January 09, 2017 Discussion: Lungs are grossly clear. Heart size is normal. Probable small hiatal hernia noted. Bowel gas pattern is nonobstructive. Prior cholecystectomy noted. No acute osseous changes are identified. Impression: 1. Nonspecific nonobstructive bowel gas pattern. 2. No evidence of acute cardiopulmonary process
[2017-09-10 00:09] LABS: HCV ANTIBODY <0.1 s/co ratio (0.0-0.9); HEP A IGM ABDY Negative (Negative)
[2017-09-12 22:08] LABS: CHLAMYDIA PROBE Negative (Negative)
== END 2017-09-09 02:41 | disposition home or self-care (01) ==
LOC: ER 20:39
DX: G89.29 Other chronic pain (principal); K59.00 Constipation, unspecified; F31.9 Bipolar disorder, unspecified; F41.9 Anxiety disorder, unspecified; N89.8 Other specified noninflammatory disorders of vagina; K21.9 Gastro-esophageal reflux disease without esophagitis; K58.9 Irritable bowel syndrome, unspecified; Z87.440 Personal history of urinary (tract) infections; Z90.49 Acquired absence of other specified parts of digestive tract; F12.10 Cannabis abuse, uncomplicated; Z87.891 Personal history of nicotine dependence
CPT/HCPCS: 36415; 74022; 74177; 80048; 80074; 80076; 80307; 81001; 81025; 82150; 83690; 85025; 85610; 85730; 87491; 87591; 96360; 96361; 99285; Q0111; Q0163; Q9966; Q9967; G0479; J7030

== ENCOUNTER 2018-01-05 16:57 | Emergency (ER) | payer OTHER ==
[~2018-01-05] VITALS: Ht 149.9 cm; Wt 53.9 kg
[~2018-01-05 16:57] MED LIST changes: +FLUO40CA2 PO; +LORA2TAB89 PO; +PEG4000S8 PO
[2018-01-05 17:12] VITALS: BP 115/77
--- NOTE | 2018-01-05 17:21 | PHYS DOC ---
Past History Past Medical History: Anxiety, Bipolar, Constipation, GERD, IBS, Other Past Surgical History: Cholecystectomy Smoking: Cigarettes, Quit Less Than 1 Year Alcohol Use: None Drug Use: Marijuana Adult General Chief Complaint Chief Complaint: KNEE INJURY HPI HPI 27-year-old female with a history of cervical palsy and multiple previous knee surgeries presents with right knee pain after she banged her right knee against a concrete step. She states the pain is so bad right now that she is nauseated. She states the pain is worse if she tries to walk on it. She denies any other injuries at this time.[] Review of Systems Review of Systems Constitutional: Denies fever or chills [] Eyes: Denies change in visual acuity, redness, or eye pain [] HENT: Denies nasal congestion or sore throat [] Respiratory: Denies cough or shortness of breath [] Cardiovascular: No additional information not addressed in HPI [] GI: Denies abdominal pain, nausea, vomiting, bloody stools or diarrhea [] : Denies dysuria or hematuria [] Musculoskeletal: Denies back pain or joint pain [] Integument: Denies rash or skin lesions [] Neurologic: Denies headache, focal weakness or sensory changes [] Endocrine: Denies polyuria or polydipsia [] All other systems were reviewed and found to be within normal limits, except as documented in this note. Allergies Allergies Allergies Coded Allergies Type Severity Reaction Last Updated Verified No Known Drug Allergies 09/09/17 No Physical Exam Physical Exam Constitutional: Well developed, well nourished, no acute distress, non-toxic appearance. [] HENT: Normocephalic, atraumatic, bilateral external ears normal, oropharynx moist, no oral exudates, nose normal. [] Eyes: PERRLA, EOMI, conjunctiva normal, no discharge. [] Neck: Normal range of motion, no tenderness, supple, no stridor. [] Cardiovascular:Heart rate regular rhythm, no murmur [] Lungs & Thorax: Bilateral breath sounds clear to auscultation [] Abdomen: Bowel sounds normal, soft, no tenderness, no masses, no pulsatile masses. [] Skin: Warm, dry, no erythema, no rash. [] Back: No tenderness, no CVA tenderness. [] Extremities: I see no evidence of injury to the right knee. There is no swelling there is no ecchymosis there is no abrasion. [] Neurologic: Alert and oriented X 3, normal motor function, normal sensory function, no focal deficits noted. [] Psychologic: Affect normal, judgement normal, mood normal. [] EKG EKG [] Radiology/Procedures Radiology/Procedures [] Impressions: Right knee x-ray: Negative exam as interpreted by me Course & Med Decision Making Course & Med Decision Making Pertinent Labs and Imaging studies reviewed. (See chart for details) [] Dragon Disclaimer Dragon Disclaimer This electronic medical record was generated, in whole or in part, using a voice recognition dictation system. Departure Departure: Impression: Primary Impression: Contusion of right knee Disposition: HOME, SELF-CARE Condition: STABLE Referrals: PCP,RON (PCP) Patient Instructions: Contusion Scripts Ondansetron (ONDANSETRON ODT) 4 Mg Tab.rapdis 1 TAB PO PRN Q6-8HRS for NAUSEA, #16 TAB Prov: PATRICK HIRSCH DO 01/05/18 Naproxen (NAPROXEN) 500 Mg Tablet.dr 1 TAB PO Q12HR PRN for PAIN, #20 TAB 1 Refill Prov: PATRICK HIRSCH DO 01/05/18 Problem Qualifiers Primary Impression: Contusion of right knee Encounter type: initial encounter Qualified Codes: S80.01XA - Contusion of right knee, initial encounter PATRICK HIRSCH DO Jan 05, 2018 17:21
[2018-01-05] MEDS ORDERED: ONDA4TAB12 PO (17:24)
[2018-01-05] MEDS ORDERED: NAPR500T8 PO (17:24)
[2018-01-05] MEDS ORDERED: HYDROcodone/APAP 5/325MG 1 TAB TABLET PO ONE (17:40)
[2018-01-05] MEDS ORDERED: ONDANSETRON ODT 4 MG TAB.RAPDIS PO ONE (17:40)
--- NOTE | 2018-01-05 18:10 | RAD ---
Right knee, 3 views, 01/05/2018: HISTORY: Fall, knee pain No acute fracture or dislocation is identified. A surgical plate with screws is partially visualized in the mid to distal femur. No joint effusion is evident. IMPRESSION: No acute right knee abnormality is detected. Electronically signed by: Manuel Gardner MD (01/05/2018 6:07 PM) [facility]
== END 2018-01-05 17:37 | disposition home or self-care (01) ==
LOC: ER 16:57
DX: S80.01XA Contusion of right knee, initial encounter (principal); K21.9 Gastro-esophageal reflux disease without esophagitis; K58.9 Irritable bowel syndrome, unspecified; Z87.891 Personal history of nicotine dependence; W22.8XXA Striking against or struck by other objects, initial encounter; Y93.89 Activity, other specified; Y99.8 Other external cause status; Y92.89 Other specified places as the place of occurrence of the external cause
CPT/HCPCS: 73562; 99284; Q0162

== ENCOUNTER 2018-02-15 15:41 | Inpatient (IN) | payer OTHER ==
[~2018-02-15] VITALS: Ht 149.9 cm; Wt 51.8 kg
[~2018-02-15 15:41] MED LIST changes: +NAPR500T8 PO; +ONDA4TAB12 PO
[2018-02-15] MEDS ORDERED: IV NORMAL SALINE 1,000ML 1,000 ML IV SCH (15:48)
[2018-02-15] MEDS ORDERED: MORPHINE SULFATE 4 MG/ML DISP.SYRIN. IV/SQ PRN (16:00)
[2018-02-15] MEDS ORDERED: IV NORMAL SALINE 1,000ML 1,000 ML IV ONE (16:00)
--- NOTE | 2018-02-15 16:06 | PHYS DOC ---
Past History Past Medical History: Anxiety, Bipolar, Constipation, GERD, IBS, Other Past Surgical History: Cholecystectomy Smoking: Cigarettes, Quit Less Than 1 Year Alcohol Use: None Drug Use: Marijuana Adult General Chief Complaint Chief Complaint: NAUSEA/VOMITING/DIARRHEA HPI HPI Patient is a 27-year-old female with a history of cerebral palsy, GERD, IBS, Bipolar disorder, and anxiety who presents for evaluation of abdominal pain, nausea, vomiting, and diarrhea over the last 2 weeks. She is scheduled to see Dr. Quinn from gastroenterology for an upper endoscopy and further workup very soon. She appears pale upon arrival. She is joined by her girlfriend/ caregiver and states that there is no chance she is . She was seen here previously and found to have pyelonephritis. She is alert and oriented 3, calm , appears fatigued, but is in no distress at this time. Complaining of lower abdominal discomfort as well. She denies fevers or chills, rectal bleeding, pelvic pain/bleeding/discharge, masses, chest pain or shortness of breath, back or flank pain, or syncope. She reports a h/o constipation and cholecystectomy. Review of Systems Review of Systems Constitutional: Denies fever or chills [] weak Eyes: Denies change in visual acuity, redness, or eye pain [] HENT: Denies nasal congestion or sore throat [] Respiratory: Denies cough or shortness of breath [] Cardiovascular: No additional information not addressed in HPI [] GI: Denies bloody stools [] +abd pain, n/v/d : Denies dysuria or hematuria [] Musculoskeletal: Denies back pain or joint pain [] Integument: Denies rash or skin lesions [] Neurologic: Denies headache, focal weakness or sensory changes [] Endocrine: Denies polyuria or polydipsia [] All other systems were reviewed and found to be within normal limits, except as documented in this note. Current Medications Current Medications Current Medications Medications (Trade) Dose Ordered Sig/Maldonado Start Time Stop Time Status Last Admin Dose Admin Iohexol (Omnipaque 300 Mg/ml) 75 ml 1X ONCE 02/15/18 16:00 02/15/18 16:01 UNV Morphine Sulfate (Morphine 4mg Syringe) 4 mg PRN Q15MIN PRN 02/15/18 16:00 02/16/18 15:59 Ondansetron HCl (Zofran) 4 mg 1X ONCE 02/15/18 16:30 02/15/18 16:31 Sodium Chloride 1,000 ml @ 1,000 mls/hr 1X ONCE 02/15/18 16:00 02/15/18 16:59 Allergies Allergies Allergies Coded Allergies Type Severity Reaction Last Updated Verified No Known Drug Allergies 09/09/17 No Physical Exam Physical Exam Constitutional: Well developed, well nourished, no acute distress, non-toxic appearance. [] appears pale HENT: Normocephalic, atraumatic, bilateral external ears normal, oropharynx moist, no oral exudates, nose normal. [] Eyes: PERRLA, EOMI, conjunctiva normal, no discharge. [] Neck: Normal range of motion, no tenderness, supple, no stridor. [] Cardiovascular:Heart rate regular rhythm, no murmur [] Lungs & Thorax: Bilateral breath sounds clear to auscultation [] Abdomen: Bowel sounds normal, no masses, no pulsatile masses. [] +ttp and firmness to suprapubic region just below umbilicus Skin: Warm, dry, no erythema, no rash. [] Back: No tenderness, no CVA tenderness. [] Extremities: No tenderness, no cyanosis, no clubbing, ROM intact, no edema. [] Neurologic: Alert and oriented X 3, normal motor function, normal sensory function, no focal deficits noted. [] Psychologic: Affect normal, judgement normal, mood normal. [] EKG EKG [] Radiology/Procedures Radiology/[place] [address] IMAGING REPORT Signed PATIENT: MANSOOR FRANCO ACCOUNT: [id number] : 1990 LOCATION: ER AGE: 27 SEX: F EXAM STATUS: REG ER ORD. PHYSICIAN: PORTILLO IBRAHIM DO REASON: lower abd pain, lower abdomen feels firm on palpation, n/v/d PROCEDURE: CT ABD PELV W/ IV CONTRST ONLY Indication: Lower abdominal pain. Nausea and vomiting. Technique: Axial images and coronal and sagittal reformatted images are provided. 75 mL of intravenous Omnipaque 300 was administered without complication. Comparison is from September 08, 2017. One or more of the following individualized dose reduction techniques were utilized for this examination: 1. Automated exposure control 2. Adjustment of the mA and/or kV according to patient size 3. Use of iterative reconstruction technique Findings: The lung bases are clear. There is no pleural effusion. The heart is not enlarged. There is fatty infiltration of the liver. Gallbladder is absent. Spleen is not enlarged. Pancreas and adrenals are unremarkable. Kidneys are symmetrically perfused. Aorta is normal caliber. Lack of oral contrast limits evaluation of bowel. There is probably a small hiatal hernia. There is no dilated small bowel loop or mural thickening apparent. Normal appendix probably is visualized. There is questionable mural thickening involving a segment of descending colon, this segment was normal in appearance back in September. There is minimal adjacent inflammatory stranding. There is no abscess or free air. Endometrial stripe is thickened but this can be a normal finding in a patient of this age. There is no free pelvic fluid or adnexal mass. Bony structures are intact. IMPRESSION: 1. Questionable mild mural thickening in the descending colon with minimal adjacent inflammatory stranding noted. This is a change from September. It is concerning for colitis. There is no abscess or free air. 2. Fatty infiltration of the liver. Electronically signed by: Tanvir Sim MD (02/15/2018 4:40 PM) [facility] DICTATED AND SIGNED BY: TANVIR SIM MD DATE: 02/15/18 1634 CC: PORTILLO IBRAHIM DO; MARSHA DILLON MD ~ Course & Med Decision Making Course & Med Decision Making Pertinent Labs and Imaging studies reviewed. (See chart for details) Laboratory Tests Test 02/15/18 15:54 White Blood Count 8.9 x10^3/uL Red Blood Count 4.29 x10^6/uL Hemoglobin 11.7 g/dL Hematocrit 35.8 % Mean Corpuscular Volume 83 fL Mean Corpuscular Hemoglobin 27 pg Mean Corpuscular Hemoglobin Concent 33 g/dL Red Cell Distribution Width 17.2 % Platelet Count 344 x10^3/uL Neutrophils (%) (Auto) 69 % Lymphocytes (%) (Auto) 26 % Monocytes (%) (Auto) 4 % Eosinophils (%) (Auto) 0 % Basophils (%) (Auto) 1 % Neutrophils # (Auto) 6.2 x10^3uL Lymphocytes # (Auto) 2.3 x10^3/uL Monocytes # (Auto) 0.4 x10^3/uL Eosinophils # (Auto) 0.0 x10^3/uL Basophils # (Auto) 0.0 x10^3/uL Maternal Serum HCG Beta Subunit < 1 mIU/mL Sodium Level 136 mmol/L Potassium Level 3.7 mmol/L Chloride Level 101 mmol/L Carbon Dioxide Level 24 mmol/L Anion Gap 11 Blood Urea Nitrogen 15 mg/dL Creatinine 0.6 mg/dL Estimated GFR (Cockcroft-Gault) 119.0 BUN/Creatinine Ratio 25 Glucose Level 79 mg/dL Calcium Level 9.9 mg/dL Total Bilirubin 0.3 mg/dL Aspartate Amino Transf (AST/SGOT) 20 U/L Alanine Aminotransferase (ALT/SGPT) 18 U/L Alkaline Phosphatase 100 U/L Total Protein 8.2 g/dL Albumin 4.3 g/dL Albumin/Globulin Ratio 1.1 Lipase 129 U/L Current Medications Medications (Trade) Dose Ordered Sig/Maldonado Route PRN Reason Start Time Stop Time Status Last Admin Dose Admin Sodium Chloride 1,000 ml @ 100 mls/hr Q10H IV 02/15/18 15:48 02/15/18 15:58 DC Ondansetron HCl (Zofran) 4 mg 1X ONCE IV 02/15/18 16:30 02/15/18 16:31 DC 02/15/18 16:10 Morphine Sulfate (Morphine 4mg Syringe) 4 mg PRN Q15MIN PRN IV/SQ PAIN GREATER THAN 3/10 02/15/18 16:00 02/16/18 15:59 02/15/18 16:10 Sodium Chloride 1,000 ml @ 1,000 mls/hr 1X ONCE IV 02/15/18 16:00 02/15/18 16:59 DC 02/15/18 16:10 Iohexol (Omnipaque 300 Mg/ml) 75 ml 1X ONCE IV 02/15/18 16:30 02/15/18 16:31 DC 02/15/18 16:25 Piperacillin Sod/ Tazobactam Sod 4.5 gm/Sodium Chloride 50 ml @ 100 mls/hr 1X ONCE IV 02/15/18 17:00 02/15/18 17:29 @1700 - patient updated on lab and imaging results which suggest acute colitis. She has been unable to keep liquids down at home so would struggle to be discharged home with medications. She is agreeable to admission for pain relief , continued IV fluids and antibiotics. Hospitalist paged. @[phone] - Dr. Hope accepts the med/surg admission. VSS. Sarah Disclaimer Dragon Disclaimer This electronic medical record was generated, in whole or in part, using a voice recognition dictation system. Departure Departure: Impression: Primary Impression: Acute colitis Additional Impressions: Nausea & vomiting Abdominal pain Dehydration Disposition: ADMITTED INPATIENT Admitting Physician: Ari Hope Condition: STABLE Referrals: MARSHA DILLON MD (PCP) Problem Qualifiers PORTILLO IBRAHIM DO Feb 15, 2018 16:06
[2018-02-15 16:07] LABS: BASO % 1 % (0-3); EOS % 0 % (0-3); HEMATOCRIT 35.8 % (36.0-47.0); HEMOGLOBIN 11.7 g/dL (12.0-15.5); LYMPH # 2.3 x10^3/uL (1.0-4.8); LYMPH % 26 % (24-48); MEAN CORPUSCULAR HEMOGLOBIN 27 pg (25-35); MEAN CORPUSCULAR HGB CONC 33 g/dL (31-37); MEAN CORPUSCULAR VOLUME 83 fL (79-100); MONO # 0.4 x10^3/uL (0.0-1.1); MONO % 4 % (0-9); NEUT # 6.2 x10^3uL (1.8-7.7); NEUT % 69 % (31-73); PLATELET COUNT 344 x10^3/uL (140-400); RED BLOOD COUNT 4.29 x10^6/uL (3.50-5.40); RED CELL DISTRIBUTION WIDTH 17.2 % (11.5-14.5); WHITE BLOOD COUNT 8.9 x10^3/uL (4.0-11.0)
[2018-02-15 16:21] LABS: ALBUMIN 4.3 g/dL (3.4-5.0); ALBUMIN/GLOBULIN RATIO 1.1 (1.0-1.7); CALCIUM 9.9 mg/dL (8.5-10.1); CREATININE 0.6 mg/dL (0.6-1.0); POTASSIUM 3.7 mmol/L (3.5-5.1); TOTAL BILIRUBIN 0.3 mg/dL (0.2-1.0); TOTAL PROTEIN 8.2 g/dL (6.4-8.2)
[2018-02-15] MEDS ORDERED: ONDANSETRON PF 4 MG/2 ML VIAL. IV ONE (16:30)
[2018-02-15] MEDS ORDERED: IOHEXOL 300 MG/ML 75 ML VIAL. IV ONE (16:30)
--- NOTE | 2018-02-15 16:44 | RAD ---
Indication: Lower abdominal pain. Nausea and vomiting. Technique: Axial images and coronal and sagittal reformatted images are provided. 75 mL of intravenous Omnipaque 300 was administered without complication. Comparison is from September 08, 2017. One or more of the following individualized dose reduction techniques were utilized for this examination: 1. Automated exposure control 2. Adjustment of the mA and/or kV according to patient size 3. Use of iterative reconstruction technique Findings: The lung bases are clear. There is no pleural effusion. The heart is not enlarged. There is fatty infiltration of the liver. Gallbladder is absent. Spleen is not enlarged. Pancreas and adrenals are unremarkable. Kidneys are symmetrically perfused. Aorta is normal caliber. Lack of oral contrast limits evaluation of bowel. There is probably a small hiatal hernia. There is no dilated small bowel loop or mural thickening apparent. Normal appendix probably is visualized. There is questionable mural thickening involving a segment of descending colon, this segment was normal in appearance back in September. There is minimal adjacent inflammatory stranding. There is no abscess or free air. Endometrial stripe is thickened but this can be a normal finding in a patient of this age. There is no free pelvic fluid or adnexal mass. Bony structures are intact. IMPRESSION: 1. Questionable mild mural thickening in the descending colon with minimal adjacent inflammatory stranding noted. This is a change from September. It is concerning for colitis. There is no abscess or free air. 2. Fatty infiltration of the liver. Electronically signed by: Tanvir Sim MD (02/15/2018 4:40 PM) [facility]
[2018-02-15] MEDS ORDERED: PIPERACILLIN/TAZOBACTAM 4.5 GM in IV NORMAL SALINE 50ML 50 ML IV ONE (17:00)
[2018-02-15] MEDS ORDERED: MORPHINE SULFATE 2 MG/ML DISP.SYRIN. IV PRN (17:30)
[2018-02-15] MEDS ORDERED: ONDANSETRON PF 4 MG/2 ML VIAL. IV PRN (17:30)
[2018-02-15] MEDS ORDERED: MORPHINE SULFATE 4 MG/ML DISP.SYRIN. IV PRN (18:30)
[2018-02-15] MEDS ORDERED: MAGNESIUM HYDROXIDE 2,400 MG/30 ML ORAL.SUSP. PO PRN (18:30)
[2018-02-15] MEDS ORDERED: BISACODYL 10 MG SUPP.RECT PR PRN (18:30)
[2018-02-15] MEDS ORDERED: PIPERACILLIN/TAZOBACTAM 4.5 GM VIAL IV ONE (19:00)
[2018-02-15] MEDS ORDERED: IV NORMAL SALINE 50ML 50 ML ONE (19:00)
[2018-02-15] MEDS ORDERED: MORPHINE SULFATE 2 MG/ML DISP.SYRIN. ONE (19:04)
[2018-02-15] MEDS: IV NORMAL SALINE 1,000ML 1,000 ML IV SCH (19:06)
[2018-02-15 19:53] LABS: BILIRUBIN,URINE NEG (NEG); CLARITY,URINE CLEAR; COLOR,URINE STRAW; GLUCOSE,URINE NEG (NEG); NITRITE,URINE NEG (NEG); UROBILINOGEN,URINE 0.2 mg/dL (0.2 mg/dL)
[2018-02-15 19:54] LABS: BACTERIA,URINE FEW /HPF (0-FEW); SQUAMOUS EPITHELIAL CELL,UR MOD /LPF
[2018-02-15 20:14] VITALS: BP 124/75
[2018-02-15] MEDS ORDERED: PIP/TAZO PER PHARMACY MC PRN (21:00)
[2018-02-15] MEDS: ONDANSETRON PF 4 MG/2 ML VIAL. IV PRN (21:43)
[2018-02-15] MEDS: MORPHINE SULFATE 2 MG/ML DISP.SYRIN. IV PRN (21:44)
[2018-02-15 23:06] VITALS: BP 100/65
[2018-02-15] MEDS ORDERED: FLUO20CA8 PO (23:34)
[2018-02-15] MEDS ORDERED: ONDA4TAB12 PO (23:34)
[2018-02-15] MEDS ORDERED: DIPH25CA58 PO (23:34)
[2018-02-15] MEDS ORDERED: IBUP400T18 PO (23:34)
[2018-02-15] MEDS: PIPERACILLIN/TAZOBACTAM 3.375 GM in IV NORMAL SALINE 50ML 50 ML IV SCH (23:57)
[2018-02-16] VITALS (8 sets, daily range): BP systolic 103–137; BP diastolic 66–87
[2018-02-16] MEDS: MORPHINE SULFATE 2 MG/ML DISP.SYRIN. IV PRN ×3 (02:37→08:46)
[2018-02-16] MEDS: PIPERACILLIN/TAZOBACTAM 3.375 GM in IV NORMAL SALINE 50ML 50 ML IV SCH ×3 (06:04→17:56)
[2018-02-16] MEDS: ONDANSETRON PF 4 MG/2 ML VIAL. IV PRN ×2 (06:05→13:03)
[2018-02-16] MEDS: IV NORMAL SALINE 1,000ML 1,000 ML IV SCH ×2 (06:05→14:16)
[2018-02-16 06:18] LABS: BASO % 0 % (0-3); EOS # 0.1 x10^3/uL (0.0-0.7); EOS % 1 % (0-3); HEMATOCRIT 30.3 % (36.0-47.0); HEMOGLOBIN 9.8 g/dL (12.0-15.5); LYMPH # 1.4 x10^3/uL (1.0-4.8); LYMPH % 17 % (24-48); MEAN CORPUSCULAR HEMOGLOBIN 28 pg (25-35); MEAN CORPUSCULAR HGB CONC 32 g/dL (31-37); MEAN CORPUSCULAR VOLUME 85 fL (79-100); MONO # 0.4 x10^3/uL (0.0-1.1); MONO % 5 % (0-9); NEUT # 6.5 x10^3uL (1.8-7.7); NEUT % 78 % (31-73); PLATELET COUNT 240 x10^3/uL (140-400); RED BLOOD COUNT 3.57 x10^6/uL (3.50-5.40); RED CELL DISTRIBUTION WIDTH 17.6 % (11.5-14.5); WHITE BLOOD COUNT 8.4 x10^3/uL (4.0-11.0)
[2018-02-16 07:37] LABS: ALBUMIN 3.2 g/dL (3.4-5.0); ALBUMIN/GLOBULIN RATIO 1.1 (1.0-1.7); CREATININE 0.5 mg/dL (0.6-1.0); GFR 146.9; MAGNESIUM 1.6 mg/dL (1.8-2.4); POTASSIUM 3.2 mmol/L (3.5-5.1); TOTAL BILIRUBIN 0.3 mg/dL (0.2-1.0); TOTAL PROTEIN 6.1 g/dL (6.4-8.2)
[2018-02-16] MEDS ORDERED: MAGNESIUM OXIDE 400 MG TABLET PO SCH (09:00)
[2018-02-16] MEDS ORDERED: POTASSIUM CHLORIDE 20 MEQ TABLET.ER. PO ONE (09:00)
[2018-02-16] MEDS ORDERED: ACETAMINOPHEN 650 MG SUPP.RECT. PR PRN (13:15)
[2018-02-16] MEDS ORDERED: KETOROLAC 15 MG/ML VIAL. IV PRN (13:30)
[2018-02-16] MEDS ORDERED: KETOROLAC 30 MG/ML VIAL. IM ONE (13:30)
[2018-02-16] MEDS ORDERED: MAGNESIUM SULFATE 2GM 50 ML IV ONE (13:30)
--- NOTE | 2018-02-16 13:32 | HP ---
ADMIT DATE: 02/16/2018 HISTORY OF PRESENT ILLNESS: The patient is a 27-year-old female patient with history of cerebral palsy, gastroesophageal reflux disease, irritable bowel syndrome and esophageal stricture, bipolar disorder, anxiety, who presented for evaluation of abdominal pain, nausea, vomiting over the last 2 weeks. When I specifically asked about diarrhea, they denied that and said that she has actually more of constipation. She apparently was scheduled to see Dr. Quinn for upper GI endoscopy and esophageal stricture dilatation. She was evaluated in the Emergency Room and was found to be mildly dehydrated. Her CT scan of the abdomen and pelvis showed that there is questionable mild mural thickening in the descending colon with minimal adjacent inflammatory stranding and fatty infiltration of the liver, but no other finding. The patient was admitted and started on IV Zosyn, IV fluid and started on liquid diet together with pain management and antiemetics. PAST MEDICAL HISTORY: Significant for cerebral palsy, gastroesophageal reflux disease, esophageal stricture as well as bipolar disorder. PAST SURGICAL HISTORY: Significant for esophageal stricture dilatation, esophagogastroduodenoscopy, cholecystectomy. ALLERGIES: She is allergic to INFLUENZA VIRUS VACCINE, PNEUMOCOCCAL VACCINE. MEDICATIONS: She is currently on following medications: She is on fluoxetine 20 mg at bedtime, ondansetron 4 mg oral disintegrating tablet every 6 hours as needed for nausea and vomiting. She is also on ibuprofen 400 mg 3 times a day and diphenhydramine 25 mg every 6 hours. FAMILY HISTORY: She has 1 older brother is alive and healthy. Mother is alive and has depression. Father is alive, but she does not know whether he has any medical problem. SOCIAL HISTORY: She does not smoke cigarettes, but does smoke marijuana. She does not drink alcohol. She is currently on disability. REVIEW OF SYSTEMS: As per history of present illness. PHYSICAL EXAMINATION: GENERAL: On arrival to the Emergency Room; she was pale, but no jaundice, cyanosis, or thyromegaly. No jugular venous distention. No limb edema. VITAL SIGNS: Her heart rate was 83, blood pressure 124/75, temperature was 98.1, respiratory rate 20, and oxygen saturation was 95%. HEAD, EYES, EARS, NOSE AND THROAT: Showed normocephalic, atraumatic. NECK: Supple. HEART: Showed normal first and second heart sounds. No gallop, rub or murmur. CHEST: Clear to auscultation. No crepitation or rhonchi. ABDOMEN: Distended, soft, no tenderness. No guarding or rigidity. No organomegaly. All hernial orifice intact. Bowel sounds normal. NEUROLOGIC: She is awake, alert, responding appropriately. All cranial nerves intact. EXTREMITIES: She moves all extremities without difficulty. She is able to walk for short distances; however, she use mostly walker. LABORATORY DATA: On admission showed a white cell count of 8900, hemoglobin 11.7, hematocrit 35.8, MCV 83 and platelet count of 344,000. Her serum sodium was 136, potassium 3.7, chloride 101, bicarbonate 24, anion gap of 11, BUN 15, creatinine 0.6, estimated GFR was 119 mL per minute. Her glucose was 79, calcium was 9.9. Total bilirubin, AST, ALT, alkaline phosphatase were normal. Total protein was 8.2, albumin was 4.3. Her serum lipase 129. Urinalysis showed the urine was straw colored, clear with a pH of 7, specific gravity of 1.010. The urine was negative for blood, protein, glucose. There was trace of ketones, trace of blood, negative for nitrite and negative leukocyte esterase. There was only 1-2 rbc's, 1-4 wbc's and very few bacteria. Her test was negative. CT scan of the abdomen showed that there is fatty infiltration of the liver, gallbladder is absent. Spleen is not enlarged. Pancreas and adrenals are unremarkable. Kidneys are symmetrically perfused. Aorta is normal in caliber, lack of oral contrast limits the evaluation of the bowel. There is probably a small hiatal hernia. There are no dilated small bowel loops or mural thickening apparent. Normal appendix, probably visualized. There is questionable moderate mural thickening involving segment of the descending colon. This segment was normal in appearance back in September. There is minimal adjacent inflammatory stranding. There is no abscess or free fluid. Endometrial stripe is thickened, but this can be normal finding in a patient at this age. There is no free pelvic fluid or adnexal masses. Bony structures are intact. The patient has questionable mild mural thickening in the descending colon with minimal adjacent inflammatory stranding noted. There is a change from September else concerning for colitis. There is no abscess or free air. There is infiltration of the liver. PLAN: To basically continue with IV Zosyn. Continue IV pain medication antiemetic. Await the result of the stool for C. diff toxin as well as Shigella, salmonella and Campylobacter. KAYLA GALVAN MD DR: [place]/merline JOB#: [id number] / [id number]
[2018-02-16] MEDS: POTASSIUM CL 40MEQ D5-0.45NACL 1,000 ML IV SCH (13:38)
[2018-02-16] MEDS: LACTOBACILLUS RHAMNOSUS GG 1 CAPSULE. PO SCH (20:12)
[2018-02-16] MEDS: diphenhydrAMINE HCL 25 MG CAPSULE PO PRN (20:12)
--- NOTE | 2018-02-16 20:47 | PN ---
DATE: 02/16/2018 SUBJECTIVE: The patient is resting slightly propped up. Continues to complain of recurrent bouts of nausea and vomiting. She also has diarrhea, although on questioning, most of the complaint was mostly abdominal pain, constipation together with nausea and vomiting. Also, she was found to have hypomagnesemia and hypokalemia and the patient could not tolerate any oral supplementation. So we did start her on D5 half normal with 40 mEq of potassium chloride as well as 2 grams of magnesium sulfate. For her headache, we started her on Toradol and Tylenol suppository. PHYSICAL EXAMINATION: GENERAL: When I examined her this afternoon, she looked well and was clearly in no apparent respiratory distress, pale, but not jaundiced or cyanosed. No lymphadenopathy, no thyromegaly, no jugular venous distention. No lower limb edema. VITAL SIGNS: Her heart rate was 52, blood pressure was 105/66, temperature was 98.1, respiratory rate was 24, and oxygen saturation was 98%. HEAD, EYES, EARS, NOSE AND THROAT: Showed normocephalic, atraumatic. NECK: Supple. HEART: Showed normal first and second heart sounds with no gallop, rub, or murmur. CHEST: Shows central trachea, equal bilateral expansion, air entry, vesicular breath sound. No crepitation or rhonchi. ABDOMEN: Distended, soft, nontender. No guarding or rigidity. No organomegaly. Hernial orifice intact. Bowel sounds normal. NEUROLOGIC: She is awake, alert, responding appropriately. All cranial nerves intact. She moves extremities without difficulty. She is mostly bed bound. LABORATORY DATA: Her lab work showed a white cell count of 8400, hemoglobin 10, hematocrit 30, MCV 85 and platelet count 240,000. Her chemistry this morning showed a serum sodium 139, potassium 3.2, chloride 105, bicarbonate 23, anion gap of 11, BUN 6, creatinine 0.5. Estimated GFR was 146 mL per minute. Her glucose was 86, calcium was 8, magnesium was 1.6. Total bilirubin, AST, ALT, alkaline phosphatase were normal. Total protein was 6.1. Her magnesium was 3.2. ASSESSMENT: In summary, this is a 27-year-old female patient with cerebral palsy. She apparently was admitted with recurrent bouts of nausea, vomiting, and abdominal pain and was found to have mural thickening of the descending colon. We will continue with IV fluid and await the results of the blood count and CBC and monitor her labs closely. KAYLA GALVAN MD DR: [place]/merline JOB#: [id number] / [id number]
[2018-02-17] MEDS: PIPERACILLIN/TAZOBACTAM 3.375 GM in IV NORMAL SALINE 50ML 50 ML IV SCH ×2 (00:05→05:37)
[2018-02-17] MEDS: diphenhydrAMINE HCL 25 MG CAPSULE PO PRN (00:43)
[2018-02-17 06:00] VITALS: BP 128/84
[2018-02-17 06:53] LABS: ALBUMIN 3.4 g/dL (3.4-5.0); ALBUMIN/GLOBULIN RATIO 1.1 (1.0-1.7); CALCIUM 8.7 mg/dL (8.5-10.1); CREATININE 0.5 mg/dL (0.6-1.0); GFR 146.9; POTASSIUM 3.6 mmol/L (3.5-5.1); TOTAL BILIRUBIN 0.3 mg/dL (0.2-1.0); TOTAL PROTEIN 6.6 g/dL (6.4-8.2)
[2018-02-17] MEDS: POTASSIUM CL 40MEQ D5-0.45NACL 1,000 ML IV SCH (09:14)
[2018-02-17] MEDS: LACTOBACILLUS RHAMNOSUS GG 1 CAPSULE. PO SCH (09:14)
[2018-02-17] MEDS ORDERED: CIPR500T PO (10:46)
[2018-02-17] MEDS ORDERED: TRAM50TA PO (10:46)
[2018-02-17] MEDS ORDERED: METR250T PO (10:46)
[2018-02-17 11:13] VITALS: BP 108/73
--- NOTE | 2018-02-17 11:51 | DS ---
DATE OF DISCHARGE: 02/17/2018 HISTORY OF PRESENT ILLNESS: The patient is a 27-year-old female patient with a past medical history significant for cerebral palsy. She is also known to have gastroesophageal reflux disease, irritable bowel syndrome, bipolar disorder and anxiety, came to the Emergency Room complaining of abdominal pain, nausea, vomiting as well as diarrhea over the last 2 weeks. She was apparently scheduled to see Dr. Quinn for upper GI endoscopy and further workup; however, the pain has worsened and therefore she came to the Emergency Room where she was evaluated and was found to be . She was found to be also dehydrated and hypokalemic. Her CT scan of the abdomen showed that she has mild mural thickening of the descending colon with minimal adjacent inflammatory stranding noted. This is a change from September concerning for colitis. There is no abscess or free air. She has some fatty infiltration of the liver. The patient was started on IV Zosyn, IV fluid, and she did well. We did start her on a clear liquid diet and was advanced to mechanically soft diet and she did also well. She has had no further episodes of nausea, vomiting, no abdominal pain and a decision was made to discharge her home to continue antibiotic treatment orally. She does have an appointment to see Dr. Quinn, next 02/21/2018. PHYSICAL EXAMINATION: GENERAL: When I examined her this morning, she was sitting at the edge of the bed comfortably in no apparent distress. She is awake, alert, responding appropriately. She was pale, but no jaundice or cyanosis. No lymphadenopathy, no thyromegaly. No jugular venous distension. No lower limb edema. VITAL SIGNS: Her heart rate was 75, blood pressure was 128/84, temperature was 98, respiratory rate was 20, and oxygen saturation was 95%. HEAD, EYES, EARS, NOSE AND THROAT: Showed normocephalic, atraumatic. NECK: Supple. HEART: Showed normal first and second heart sounds. No gallop, rub or murmur. CHEST: Clear to auscultation. No crepitation or rhonchi. ABDOMEN: Distended, soft, nontender. NEUROLOGIC: She was awake, alert, responding appropriately. All cranial nerves intact. She moves extremities without difficulty; however, she walks with a walker with assistance. Her intake over the last 24 hours was 1650, output was 1100. LABORATORY DATA: As of this morning showed a serum sodium 137, potassium 3.6, chloride 103, bicarbonate 25, anion gap of 8, BUN 3, creatinine 0.5, estimated GFR was 146 mL per minute. Her glucose was 103, calcium was 8.7. Total bilirubin, AST, ALT, alkaline phosphatase were normal. Her magnesium was 1.6. Total protein was 6.6, albumin 3.4. Her C-reactive protein was 1.5 mg/dL. Her white cell count was 8400, hemoglobin 10, hematocrit 30, MCV 85 and platelet count 240,000 with a sedimentation rate of 24 mm per hour. DISCHARGE MEDICATIONS: She will be discharged home to continue on ciprofloxacin 500 mg twice a day for 7 days, metronidazole 250 mg 3 times a day for 1 week and tramadol 50 mg every 6 hours as needed for pain. She is also will be discharged on ondansetron ODT 4 mg every 4 hours as needed for nausea and vomiting, fluoxetine 20 mg daily, and diphenhydramine 25 mg every 6 hours. FINAL DISCHARGE DIAGNOSES: 1. Acute colitis. 2. Recurrent bouts of nausea and vomiting. 3. Hypokalemia. 4. Dehydration. The patient requires assistance for all her ADLs. She has cerebral palsy. The patient and her significant other were advised to keep the appointment with Dr. Quinn on 02/21/2018. She apparently has esophageal stricture that need to be dilated. KAYLA GALVAN MD DR: [place]/merline JOB#: [id number] / [id number]
== END 2018-02-17 11:35 | disposition home or self-care (01) | DRG 872 ==
LOC: ER 15:41 → 1 SOUTH 17:10
PROVIDERS: ADMIT Internal Medicine; ATTEND Internal Medicine
DX: A41.9 Sepsis, unspecified organism (principal); K52.9 Noninfective gastroenteritis and colitis, unspecified; E83.42 Hypomagnesemia; E86.0 Dehydration; E87.6 Hypokalemia; F31.9 Bipolar disorder, unspecified; F41.9 Anxiety disorder, unspecified; K76.0 Fatty (change of) liver, not elsewhere classified; G80.9 Cerebral palsy, unspecified; K21.9 Gastro-esophageal reflux disease without esophagitis; K22.2 Esophageal obstruction; Z81.8 Family history of other mental and behavioral disorders; Z87.891 Personal history of nicotine dependence; Z90.49 Acquired absence of other specified parts of digestive tract
CPT/HCPCS: 36415; 51702; 74177; 80053; 81001; 83615; 83690; 83735; 84702; 85025; 85651; 86140; 96361; 96365; 96375; 96376; J1885; J2270; J2405; J2543; J3475; J7042; Q0163; Q9967; 97110; 97116; 97530; 99285-25; J7030

== ENCOUNTER → 2018-03-10 | Outpatient (CLI) | payer OTHER ==
[2018-02-17 11:13] VITALS: BP 108/73
[~2018-03-10] MED LIST changes: +BARIUM SULFATE 60% 355 ML SUSP PO ONE; +DIPH25CA58 PO; +FLUO20CA8 PO; +IBUP400T18 PO; +METR250T PO; +TRAM50TA PO
--- NOTE | 2018-03-10 16:31 | RAD ---
SMALL BOWEL SERIES 03/10/2018. Reason for study: Crohn's disease. Abdominal pain. Comparison studies: CT abdomen/pelvis February 15, 2018. Technique: Preliminary trash hauler film of the abdomen was obtained. Then following ingestion of oral barium, serial images of the abdomen were obtained to assess progress of contrast throughout the small bowel. Once the contrast reached the colon, fluoroscopic evaluation of the small bowel, particularly the terminal ileum, was performed. Fluoroscopy time: 0.9 minutes. Number of images: 11 Findings: Dermatological Surgeon film reveals nonobstructive bowel gas pattern. Moderate amount of stool is noted in the right colon. Cholecystectomy clips are present. Suspicious osseous abnormalities visualized. Transit time through the small bowel is normal. No evidence for bowel obstruction or dilatation. Jejunal and ileal fold patterns are normal with no evidence for inflammatory bowel disease. The terminal ileum was unremarkable. Faint contrast identified in the left lower quadrant may be within the left colon. IMPRESSION: Terminal ileum is normal in appearance. Opacified small bowel loops demonstrate normal mucosal fold pattern. Electronically signed by: Светлана Cotto MD (03/10/2018 4:27 PM) [facility]
== END | disposition home or self-care (01) ==
LOC: RAD 08:02
PROVIDERS: ATTEND Internal Medicine Gastroenterology
DX: K50.90 Crohn's disease, unspecified, without complications (principal); K21.9 Gastro-esophageal reflux disease without esophagitis; R10.84 Generalized abdominal pain; E87.6 Hypokalemia; Z87.891 Personal history of nicotine dependence; Z87.440 Personal history of urinary (tract) infections; Z90.49 Acquired absence of other specified parts of digestive tract
CPT/HCPCS: 74250

== ENCOUNTER 2018-08-10 15:16 | Emergency (ER) | payer OTHER ==
[~2018-08-10 15:16] MED LIST changes: -ALBU18HF IH; +ALBU2.5V8 IH; -BARIUM SULFATE 60% 355 ML SUSP PO ONE; +HYDR-3165 PO; -HYDR-971 PO
[2018-08-10] MEDS ORDERED: IV NORMAL SALINE 1,000ML 1,000 ML IV SCH (15:52)
--- NOTE | 2018-08-10 16:13 | PHYS DOC ---
Past History Past Medical History: Bipolar, Other (colitis) Past Surgical History: Cholecystectomy Smoking: Cigarettes, Quit Less Than 1 Year Alcohol Use: None Drug Use: Marijuana Adult General Chief Complaint Chief Complaint: ABDOMINAL PAIN HPI HPI Patient is a 28 year old female who presents with left-sided abdominal pain, nausea, vomiting. This started several days ago. Patient reports being unable to tolerate any oral intake. Patient has had previous similar symptoms with ulcerative colitis. Patient is out of her medication for ulcerative colitis. She has follow-up tomorrow with the GI specialist. Patient has not had a colectomy although she reports that it has been discussed. Patient reports decreased bowel movements. Denies any blood in the stool. Notes some subjective fever. She also denies any blood in the emesis. She reports that her last use of marijuana was yesterday to help with the nausea and vomiting[] Review of Systems Review of Systems Constitutional: Denies fever or chills [] Eyes: Denies change in visual acuity, redness, or eye pain [] HENT: Denies nasal congestion or sore throat [] Respiratory: Denies cough or shortness of breath [] Cardiovascular: No chest pain or palpitations[] GI: See history of present illness[] : Denies dysuria or hematuria [] Musculoskeletal: Denies back pain or joint pain [] Integument: Denies rash or skin lesions [] Neurologic: Denies headache, focal weakness or sensory changes [] Endocrine: Denies polyuria or polydipsia [] All other systems were reviewed and found to be within normal limits, except as documented in this note. Current Medications Current Medications Current Medications Medications (Trade) Dose Ordered Sig/Maldonado Start Time Stop Time Status Last Admin Dose Admin Sodium Chloride 1,000 ml @ 1,000 mls/hr Q1H 08/10/18 15:52 08/10/18 16:51 UNV Allergies Allergies Allergies Coded Allergies Type Severity Reaction Last Updated Verified Influenza Virus Vaccines Allergy Mild Hives 02/15/18 Yes pneumococcal vaccine Allergy Mild Hives 02/15/18 Yes Physical Exam Physical Exam Constitutional: Well developed, well nourished, mild to moderate discomfort, non -toxic appearance. [] HENT: Normocephalic, atraumatic, bilateral external ears normal, oropharynx dry with chapped lips, no oral exudates, nose normal. [] Eyes: PERRLA, EOMI, conjunctiva normal, no discharge. [] Neck: Normal range of motion, no tenderness, supple, no stridor. [] Cardiovascular:Heart rate is tachycardic with a regular rhythm, no murmur [] Lungs & Thorax: Bilateral breath sounds clear to auscultation [] Abdomen: Bowel sounds normal, soft, left-sided tenderness, no rebound, no guarding, no rigidity,, no masses, no pulsatile masses. [] Skin: Warm, dry, no erythema, no rash. [] Back: No tenderness, no CVA tenderness. [] Extremities: No tenderness, no cyanosis, no clubbing, ROM intact, no edema. [] Neurologic: Alert and oriented X 3, normal motor function, normal sensory function, no focal deficits noted. [] Psychologic: Affect normal, judgement normal, mood normal. [] Current Patient Data Vital Signs Vital Signs Date Time Temp Pulse Resp B/P (MAP) Pulse Ox O2 Delivery O2 Flow Rate FiO2 08/10/18 15:20 97.8 110 22 100 Room Air EKG EKG [] Radiology/Procedures Radiology/Procedures Examination: CT of the abdomen pelvis with IV contrast HISTORY: History of left-sided abdominal pain COMPARISON: 02/15/2018 TECHNIQUE: Axial CT images of the abdomen pelvis were performed with IV contrast. Coronal and sagittal reformats are performed Exposure: One or more of the following individualized dose reduction techniques were utilized for this examination: 1. Automated exposure control 2. Adjustment of the mA and/or kV according to patient size 3. Use of iterative reconstruction technique FINDINGS: Mild bibasilar lung airspace opacities likely atelectasis. No evidence of free air identified in the abdomen. Visualized liver, spleen, adrenals grossly appears unremarkable. Cholecystectomy changes identified. The stomach is mildly distended. Moderate size hiatal hernia is identified. The visualized pancreas grossly appears unremarkable. Mild prominent appearing common bile duct likely post cholecystectomy changes. The small bowel is nondilated. Appendix is normal. Feces and gas noted in the colon. There is mild thickened appearance of the wall of the rectum with minimal surrounding fat stranding. The bilateral kidneys enhance symmetrically. The caliber of the aorta grossly appears unremarkable. No evidence of lytic bony destructive lesion. There is a right spondylolysis L3 vertebra. IMPRESSION: 1. Mild thickened appearance of the wall of the rectum with minimal surrounding fat stranding could be proctitis or due to nondistention. Correlate clinically. 2. Cholecystectomy changes. 3. Moderate size hiatal hernia. [] Course & Med Decision Making Course & Med Decision Making Pertinent Labs and Imaging studies reviewed. (See chart for details) ED course: Patient arrived, was placed in bed, in tolerated exam well. Patient care was endorsed to the oncoming physician at 1800 with labs pending. Patient's CT scan shows possible minimal formation of the rectum. Her labs are unremarkable. Her urinalysis is negative for infection. Given the patient's GI appointment tomorrow and the fact that she is not having bleeding, I will not give specific treatment for the possible inflamed rectum, but will rather defer that to the GI specialist. We will provide a written copy of the CT scan to the patient on discharge. She is stable for discharge at this time. I will discharge her with Zofran and tramadol.[] Dragon Disclaimer Dragon Disclaimer This electronic medical record was generated, in whole or in part, using a voice recognition dictation system. Departure Departure: Impression: Primary Impression: Abdominal pain Additional Impression: Ulcerative colitis Disposition: 01 HOME, SELF-CARE Condition: STABLE Referrals: MARSHA DILLON MD (PCP) Patient Instructions: Ulcerative Colitis Scripts Tramadol Hcl (TRAMADOL HCL) 50 Mg Tablet 50 MG PO PRN Q6HRS PRN for PAIN, #14 TAB Prov: PATSY VILLAGRAN DO 08/10/18 Ondansetron (ONDANSETRON ODT) 4 Mg Tab.rapdis 1 TAB PO PRN Q6-8HRS PRN for NAUSEA/VOMITING, #20 TAB Prov: PATSY VILLAGRAN DO 08/10/18 Problem Qualifiers Primary Impression: Abdominal pain Abdominal location: lower abdomen, unspecified Qualified Codes: R10.30 - Lower abdominal pain, unspecified Additional Impression: Ulcerative colitis Ulcerative colitis location: ulcerative rectosigmoiditis Digestive disease complication type: without complication Qualified Codes: K51.30 - Ulcerative (chronic) rectosigmoiditis without complications ELYSE LIU DO Aug 10, 2018 16:13 PATSY VILLAGRAN DO Aug 10, 2018 18:36
[2018-08-10] MEDS ORDERED: IOHEXOL 300 MG/ML 75 ML VIAL. IV ONE (16:15)
[2018-08-10] MEDS ORDERED: HYOSCYAMINE 0.125 MG TAB.RAPDIS PO ONE (16:15)
[2018-08-10] MEDS ORDERED: PROCHLORPERAZINE 10 MG/2 ML VIAL. IV ONE (16:15)
[2018-08-10 16:59] LABS: BASO # 0.1 x10^3/uL (0.0-0.2); BASO % 1 % (0-3); EOS # 0.1 x10^3/uL (0.0-0.7); EOS % 1 % (0-3); HEMATOCRIT 35.1 % (36.0-47.0); HEMOGLOBIN 11.3 g/dL (12.0-15.5); LYMPH # 2.4 x10^3/uL (1.0-4.8); LYMPH % 32 % (24-48); MEAN CORPUSCULAR HEMOGLOBIN 29 pg (25-35); MEAN CORPUSCULAR HGB CONC 32 g/dL (31-37); MEAN CORPUSCULAR VOLUME 89 fL (79-100); MONO # 0.3 x10^3/uL (0.0-1.1); MONO % 4 % (0-9); NEUT # 4.7 x10^3uL (1.8-7.7); NEUT % 62 % (31-73); PLATELET COUNT 327 x10^3/uL (140-400); RED BLOOD COUNT 3.93 x10^6/uL (3.50-5.40); RED CELL DISTRIBUTION WIDTH 18.6 % (11.5-14.5); WHITE BLOOD COUNT 7.6 x10^3/uL (4.0-11.0)
[2018-08-10 17:13] LABS: ALBUMIN 3.5 g/dL (3.4-5.0); ALBUMIN/GLOBULIN RATIO 0.8 (1.0-1.7); CALCIUM 9.2 mg/dL (8.5-10.1); CREATININE 0.5 mg/dL (0.6-1.0); GFR 145.9; POTASSIUM 4.3 mmol/L (3.5-5.1); TOTAL BILIRUBIN 0.2 mg/dL (0.2-1.0); TOTAL PROTEIN 7.8 g/dL (6.4-8.2)
--- NOTE | 2018-08-10 17:17 | RAD ---
Examination: CT of the abdomen pelvis with IV contrast HISTORY: History of left-sided abdominal pain COMPARISON: 02/15/2018 TECHNIQUE: Axial CT images of the abdomen pelvis were performed with IV contrast. Coronal and sagittal reformats are performed Exposure: One or more of the following individualized dose reduction techniques were utilized for this examination: 1. Automated exposure control 2. Adjustment of the mA and/or kV according to patient size 3. Use of iterative reconstruction technique FINDINGS: Mild bibasilar lung airspace opacities likely atelectasis. No evidence of free air identified in the abdomen. Visualized liver, spleen, adrenals grossly appears unremarkable. Cholecystectomy changes identified. The stomach is mildly distended. Moderate size hiatal hernia is identified. The visualized pancreas grossly appears unremarkable. Mild prominent appearing common bile duct likely post cholecystectomy changes. The small bowel is nondilated. Appendix is normal. Feces and gas noted in the colon. There is mild thickened appearance of the wall of the rectum with minimal surrounding fat stranding. The bilateral kidneys enhance symmetrically. The caliber of the aorta grossly appears unremarkable. No evidence of lytic bony destructive lesion. There is a right spondylolysis L3 vertebra. IMPRESSION: 1. Mild thickened appearance of the wall of the rectum with minimal surrounding fat stranding could be proctitis or due to nondistention. Correlate clinically. 2. Cholecystectomy changes. 3. Moderate size hiatal hernia. Electronically signed by: Ronny Guerrero MD (08/10/2018 5:13 PM) [facility]
[2018-08-10 17:20] VITALS: BP 131/90
[2018-08-10 18:11] LABS: BARBITURATES NEG (NEG); BENZODIAZEPINES NEG (NEG); CANNABINOIDS POS (NEG); COCAINE NEG (NEG); METHADONE NEG (NEG); OPIATES NEG (NEG); PHENCYCLIDINE NEG (NEG)
[2018-08-10 18:12] LABS: BILIRUBIN,URINE NEG (NEG); CLARITY,URINE CLEAR; COLOR,URINE YELLOW; GLUCOSE,URINE NEG (NEG)
[2018-08-10 18:13] LABS: BACTERIA,URINE FEW /HPF (0-FEW); NITRITE,URINE NEG (NEG); RBC,URINE OCC /HPF (0-2); SQUAMOUS EPITHELIAL CELL,UR FEW /LPF; UROBILINOGEN,URINE 0.2 mg/dL (0.2 mg/dL); WBC,URINE OCC /HPF (0-4)
[2018-08-10 18:15] LABS: AMPHETAMINE/METHAMPHETAMINE NEG (NEG)
[2018-08-10] MEDS ORDERED: ONDA4TAB12 PO (18:35)
[2018-08-10] MEDS ORDERED: TRAM50TA PO (18:35)
== END 2018-08-10 18:45 | disposition home or self-care (01) ==
LOC: ER 15:16
DX: K51.30 Ulcerative (chronic) rectosigmoiditis without complications (principal); R11.2 Nausea with vomiting, unspecified; K44.9 Diaphragmatic hernia without obstruction or gangrene; Z90.49 Acquired absence of other specified parts of digestive tract; Z87.891 Personal history of nicotine dependence; Z88.7 Allergy status to serum and vaccine
CPT/HCPCS: 36415; 74177; 80053; 80307; 81001; 81025; 83690; 85025; 96361; 96374; 99284; J0780; Q9967; J7030

== ENCOUNTER 2018-10-23 21:40 | Emergency (ER) | payer OTHER ==
[~2018-10-23] VITALS: Ht 149.9 cm; Wt 53.9 kg
[2018-10-23] MEDS ORDERED: ONDANSETRON PF 4 MG/2 ML VIAL. IV ONE (22:30)
[2018-10-23] MEDS ORDERED: KETOROLAC 15 MG/ML VIAL. IV ONE (22:30)
[2018-10-23] MEDS ORDERED: FAMOTIDINE 20 MG/2 ML VIAL IVP ONE (22:30)
[2018-10-23] MEDS ORDERED: LIDO:MAALOX 1:1 20 ML SINGLE DOSE. PO ONE (22:45)
--- NOTE | 2018-10-23 23:05 | PHYS DOC ---
Past History Past Medical History: Bipolar, Other Past Surgical History: Cholecystectomy Smoking: Cigarettes, Quit Less Than 1 Year Alcohol Use: None Drug Use: Marijuana Adult General Chief Complaint Chief Complaint: ABDOMINAL PAIN HPI HPI Patient is a 28-year-old female with PMH of eosinophilic esophagitis and irritable bowel disease who presents today complaining of abdominal pain. The pain is localized mostly to the mid-epigastric region but also radiates to both upper quadrants (R>L) and generalizes. The pain started yesterday and feels "stabby". She has tried reflux medications and an inhaler and had no relief. Her pain is worsened with palpation. She also has rectal pain, described as a sensation of "constantly being fisted". She admits to constipation to the point of needing to remove stool digitally. She has mucus in her stool, but no blood. She also endorses nausea and decreased appetite, but denies vomiting. Review of Systems Review of Systems Constitutional: Denies fever or chills [] Eyes: Denies change in visual acuity, redness, or eye pain [] HENT: Denies nasal congestion or sore throat [] Respiratory: Denies cough or shortness of breath [] Cardiovascular: Denies chest pain or palpitations GI: Reports abdominal pain, nausea, and constipation : Denies dysuria or hematuria [] Musculoskeletal: Denies back pain or joint pain [] Integument: Denies rash or skin lesions [] Neurologic: Denies headache, focal weakness or sensory changes [] Complete systems were reviewed and found to be within normal limits, except as documented in this note. Current Medications Current Medications Current Medications Medications (Trade) Dose Ordered Sig/Maldonado Start Time Stop Time Status Last Admin Dose Admin Famotidine (Pepcid Vial) 20 mg 1X ONCE 10/23/18 22:30 10/23/18 22:31 DC Ketorolac Tromethamine (Toradol 15mg Vial) 15 mg 1X ONCE 10/23/18 22:30 10/23/18 22:31 DC Ondansetron HCl (Zofran) 4 mg 1X ONCE 10/23/18 22:30 10/23/18 22:31 DC Seroquel Depakote Steroid enema Folic acid Allergies Allergies Allergies Coded Allergies Type Severity Reaction Last Updated Verified Influenza Virus Vaccines Allergy Mild Hives 02/15/18 Yes pneumococcal vaccine Allergy Mild Hives 02/15/18 Yes Physical Exam Physical Exam Constitutional: Well developed, well nourished, no acute distress, non-toxic appearance. [] HENT: Normocephalic, atraumatic, oropharynx moist Eyes: Conjunctiva normal, no discharge. [] Neck: Normal range of motion, no tenderness, supple, no stridor. [] Cardiovascular: Heart rate regular rhythm, no murmur [] Lungs & Thorax: Bilateral breath sounds clear to auscultation [] Abdomen: Soft, epigastric tenderness on palpation Skin: Warm, dry, no erythema, no rash. [] Extremities: No tenderness, ROM intact, no edema. [] Neurologic: Alert and oriented X 3, no focal deficits noted. [] Psychologic: Affect normal, judgement normal, mood normal. [] Current Patient Data Vital Signs Vital Signs Date Time Temp Pulse Resp B/P (MAP) Pulse Ox O2 Delivery O2 Flow Rate FiO2 10/23/18 21:40 97.6 96 16 97 Room Air EKG EKG [] Radiology/Procedures Radiology/Procedures PROCEDURE: CT ABD PELV W/ORAL&IV CONTRAST CT scan of the abdomen and pelvis with contrast 10/24/2018 CLINICAL HISTORY: Abdominal pain and rectal discomfort. History of ulcerative colitis. TECHNIQUE: After the oral and intravenous administration of contrast, contiguous, 5 mm axial sections were obtained through the abdomen and pelvis. 75 cc of Omnipaque 300 were administered intravenously during this examination. One or more of the following individualized dose reduction techniques were utilized for this study: 1. Automated exposure control. 2. Adjustment of the mA and/or kV according to patient size. 3. Use of iterative reconstruction technique. FINDINGS: Comparison study is dated 10/24/2018. Images through the lung bases demonstrate dependent subsegmental atelectasis involving both lower lobes. There is a moderate sized hiatal hernia. The liver, spleen, pancreas, adrenal glands and kidneys are within normal limits. The abdominal aorta tapers normally. Surgical clips are seen within the gallbladder fossa consistent with a cholecystectomy. No free fluid or free air is seen within the abdomen. There is no evidence of bowel obstruction. Air and stool is seen throughout the colon. The appendix is well-visualized and is within normal limits. Images through the pelvis demonstrate a Mcmullen catheter within the urinary bladder which is decompressed. The uterus is within normal limits. No adnexal mass is seen. No free fluid is noted. No abnormal fluid collection is seen. Mild S-shaped curvature of the thoracolumbar spine is seen. IMPRESSION: No acute abnormality is seen. Electronically signed by: Oliver Dhillon MD (10/24/2018 2:24 AM) [facility] Course & Med Decision Making Course & Med Decision Making This is a 28-year-old female who presents with epigastric abdominal pain. She has a history of other GI complaints (eosinophilic esophagitis and irritable bowel syndrome), and her symptoms have become progressively worse. The pain generalizes around her abdomen, and she also complains of bloating, constipation , and rectal pain. Symptomatic treatment provided. Labs obtained and posted to chart. CT abd/pelvis without acute process. Patient with difficulty with urination. Fully catheter placed with approximately 900 mL's of output. Decision to leave Mcmullen catheterization and follow-up with urology. Patient stable for discharge with outpatient follow-up with PCP/GI specialist. Discussed findings and plan with patient and friend, who acknowledge understanding and agreement. Dragon Disclaimer Dragon Disclaimer This electronic medical record was generated, in whole or in part, using a voice recognition dictation system. Departure Departure: Impression: Primary Impression: Abdominal pain Additional Impression: Urinary retention Disposition: 01 HOME, SELF-CARE Condition: STABLE Referrals: MARSHA DILLON MD (PCP) PAZ [facility] Patient Instructions: Abdominal Pain (Nonspecific), Mcmullen Catheter Care, Adult , Urinary Retention, Acute, Female, [id number] Scripts Famotidine (PEPCID) 20 Mg Tablet 1 TAB PO BID for Gastritis, #20 TAB 0 Refills Prov: ZENOBIA CASTILLO DO 10/24/18 Sennosides/Docusate Sodium (Colace 2-in-1 Tablet) 1 Each Tablet 1 EACH PO QHS PRN for CONSTIPATION, #20 TAB Prov: ZENOBIA CASTILLO DO 10/24/18 Ondansetron (ONDANSETRON ODT) 4 Mg Tab.rapdis 1 TAB PO PRN Q6-8HRS PRN for NAUSEA, #16 TAB Prov: ZENOBIA CASTILLO DO 10/24/18 Hyoscyamine Sulfate (LEVSIN-SL) 0.125 Mg Tab.subl 1-2 TAB SL PRN Q4HRS for Pain, #20 TAB 0 Refills Prov: ZENOBIA CASTILLO DO 10/24/18 Problem Qualifiers Primary Impression: Abdominal pain Abdominal location: generalized Qualified Codes: R10.84 - Generalized abdominal pain ZENOBIA CASTILLO DO Oct 23, 2018 23:05
[2018-10-23 23:21] LABS: BASO % 0 % (0-3); EOS % 0 % (0-3); HEMATOCRIT 35.9 % (36.0-47.0); HEMOGLOBIN 11.6 g/dL (12.0-15.5); LYMPH % 11 % (24-48); MEAN CORPUSCULAR HEMOGLOBIN 29 pg (25-35); MEAN CORPUSCULAR HGB CONC 32 g/dL (31-37); MEAN CORPUSCULAR VOLUME 91 fL (79-100); MONO # 0.5 x10^3/uL (0.0-1.1); MONO % 6 % (0-9); NEUT # 7.8 x10^3uL (1.8-7.7); NEUT % 83 % (31-73); PLATELET COUNT 343 x10^3/uL (140-400); RED BLOOD COUNT 3.95 x10^6/uL (3.50-5.40); RED CELL DISTRIBUTION WIDTH 18.9 % (11.5-14.5); WHITE BLOOD COUNT 9.4 x10^3/uL (4.0-11.0)
[2018-10-23] MEDS ORDERED: IOHEXOL 300 MG/ML 75 ML VIAL. IV ONE (23:30)
[2018-10-23] MEDS ORDERED: IOHEXOL 240 MG/ML 50ML VIAL. PO ONE (23:30)
[2018-10-23 23:31] LABS: ALBUMIN/GLOBULIN RATIO 1.2 (1.0-1.7); CALCIUM 9.2 mg/dL (8.5-10.1); CREATININE 0.6 mg/dL (0.6-1.0); GFR 118.2; MAGNESIUM 1.8 mg/dL (1.8-2.4); TOTAL BILIRUBIN 0.2 mg/dL (0.2-1.0); TOTAL PROTEIN 7.4 g/dL (6.4-8.2)
[2018-10-23] MEDS ORDERED: CONTRAST GIVEN MC PRN (23:45)
[2018-10-24] MEDS ORDERED: IV NORMAL SALINE 1,000ML 1,000 ML IV ONE
[2018-10-24 01:30] LABS: BACTERIA,URINE 0 /HPF (0-FEW); BARBITURATES NEG (NEG); BENZODIAZEPINES NEG (NEG); BILIRUBIN,URINE NEG (NEG); CANNABINOIDS POS (NEG); CLARITY,URINE CLEAR; COCAINE NEG (NEG); COLOR,URINE YELLOW; GLUCOSE,URINE NEG (NEG); METHADONE NEG (NEG); NITRITE,URINE NEG (NEG); OPIATES POS (NEG); PHENCYCLIDINE NEG (NEG); RBC,URINE 0 /HPF (0-2); SQUAMOUS EPITHELIAL CELL,UR OCC /LPF; UROBILINOGEN,URINE 0.2 mg/dL (0.2 mg/dL); WBC,URINE 0 /HPF (0-4)
[2018-10-24 01:31] LABS: AMPHETAMINE/METHAMPHETAMINE NEG (NEG)
[2018-10-24 02:17] VITALS: BP 123/77
--- NOTE | 2018-10-24 02:27 | RAD ---
CT scan of the abdomen and pelvis with contrast 10/24/2018 CLINICAL HISTORY: Abdominal pain and rectal discomfort. History of ulcerative colitis. TECHNIQUE: After the oral and intravenous administration of contrast, contiguous, 5 mm axial sections were obtained through the abdomen and pelvis. 75 cc of Omnipaque 300 were administered intravenously during this examination. One or more of the following individualized dose reduction techniques were utilized for this study: 1. Automated exposure control. 2. Adjustment of the mA and/or kV according to patient size. 3. Use of iterative reconstruction technique. FINDINGS: Comparison study is dated 10/24/2018. Images through the lung bases demonstrate dependent subsegmental atelectasis involving both lower lobes. There is a moderate sized hiatal hernia. The liver, spleen, pancreas, adrenal glands and kidneys are within normal limits. The abdominal aorta tapers normally. Surgical clips are seen within the gallbladder fossa consistent with a cholecystectomy. No free fluid or free air is seen within the abdomen. There is no evidence of bowel obstruction. Air and stool is seen throughout the colon. The appendix is well-visualized and is within normal limits. Images through the pelvis demonstrate a Mcmullen catheter within the urinary bladder which is decompressed. The uterus is within normal limits. No adnexal mass is seen. No free fluid is noted. No abnormal fluid collection is seen. Mild S-shaped curvature of the thoracolumbar spine is seen. IMPRESSION: No acute abnormality is seen. Electronically signed by: Oliver Dhillon MD (10/24/2018 2:24 AM) [facility]
[2018-10-24] MEDS ORDERED: FAMO-63 PO (02:35)
[2018-10-24] MEDS ORDERED: HYOS0.1265 SL (02:35)
[2018-10-24] MEDS ORDERED: SENN-121 PO (02:35)
[2018-10-24] MEDS ORDERED: ONDA4TAB12 PO (02:35)
== END 2018-10-24 02:56 | disposition home or self-care (01) ==
LOC: ER 21:40
DX: R10.84 Generalized abdominal pain (principal); R10.13 Epigastric pain; R33.9 Retention of urine, unspecified; K59.00 Constipation, unspecified; F31.9 Bipolar disorder, unspecified; Z90.49 Acquired absence of other specified parts of digestive tract; Z87.891 Personal history of nicotine dependence; Z88.7 Allergy status to serum and vaccine
CPT/HCPCS: 36415; 51702; 74177; 80053; 80307; 81001; 81025; 83690; 83735; 85025; 96374; 96375; 99284; J1885; J2405; J3490; Q9966; Q9967; J7030

== ENCOUNTER 2018-11-01 22:29 | Emergency (ER) | payer OTHER ==
[~2018-11-01] VITALS: Ht 149.9 cm; Wt 54.0 kg
[~2018-11-01 22:29] MED LIST changes: +FAMO-63 PO; +HYOS0.1265 SL; +SENN-121 PO
[2018-11-01 22:30] VITALS: BP 100/57
--- NOTE | 2018-11-01 22:34 | ED.ADGEN ---
Past History Past Medical History: Bipolar, Other Past Surgical History: Cholecystectomy Smoking: Cigarettes, Quit Less Than 1 Year Alcohol Use: None Drug Use: Marijuana Adult General Chief Complaint Chief Complaint I am having more urinary retention.. and I can't get in yet to see ... my primary or urology..."[]" Atrial Mark unable to urinate, and get a urinary catheter"... HPI HPI Patient is a 28 year old female who presents with above hx and complaints urinary retention. Pt. seen 10/23 for urinary retention. Pt. has not been able to get follow up and feels she has urinary retention again. Pt. does have hx or rectosigmoid colitis. Pt. unable to urinate year but the catheter only documented 30 mL return. UA was nonspecific. Patient still convinced she is not able to urinate. Suspect urinary retention may be related to poor intake and her colitis. Patient to keep follow-up with Dr Frank and urology. Follow up urine cultures.. Review of Systems Review of Systems Constitutional: Denies fever or chills [] Eyes: Denies change in visual acuity, redness, or eye pain [] HENT: Denies nasal congestion or sore throat [] Respiratory: Denies cough or shortness of breath [] Cardiovascular: No additional information not addressed in HPI [] GI: Denies abdominal pain, nausea, vomiting, bloody stools or diarrhea [] : Complaints of dysuria and urinary retention Musculoskeletal: Denies back pain or joint pain [] Integument: Denies rash or skin lesions [] Neurologic: Denies headache, focal weakness or sensory changes [] Endocrine: Denies polyuria or polydipsia [] All other systems were reviewed and found to be within normal limits, except as documented in this note. Family History Family History Noncontributory Current Medications Current Medications See nursing for home meds Allergies Allergies Allergies Coded Allergies Type Severity Reaction Last Updated Verified Influenza Virus Vaccines Allergy Mild Hives 02/15/18 Yes pneumococcal vaccine Allergy Mild Hives 02/15/18 Yes Physical Exam Physical Exam Constitutional: Moderately acute distress, non-toxic appearance. [] HENT: Normocephalic, atraumatic, bilateral external ears normal, oropharynx moist, no oral exudates, nose normal. [] Eyes: PERRLA, EOMI, conjunctiva normal, no discharge. [] Neck: Normal range of motion, no tenderness, supple, no stridor. [] Cardiovascular:Heart rate regular rhythm, no murmur [] Lungs & Thorax: Bilateral breath sounds at apex with scattered wheezes on auscultation [] Abdomen: Bowel sounds normal, soft, mild suprapubic tenderness, no masses, no pulsatile masses. [] No true rebound. Old surgery scars. Skin: Warm, dry, no erythema, no rash. [] Multiple tattoos. Back: No tenderness, no CVA tenderness. [] Extremities: No tenderness, no cyanosis, no clubbing, ROM intact, no edema. [] No psoas sign. Neurologic: Alert and oriented X 3, normal motor function, normal sensory function, no focal deficits noted. [] Psychologic: Affect anxious, judgement normal, mood normal. [] Current Patient Data Vital Signs Vital Signs Date Time Temp Pulse Resp B/P (MAP) Pulse Ox O2 Delivery O2 Flow Rate FiO2 11/01/18 22:30 98.4 90 18 99 Room Air Lab Results Laboratory Tests Test 11/01/18 22:55 11/01/18 23:06 Urine Collection Type Unknown Urine Color Yellow Urine Clarity Hazy Urine pH 8.5 Urine Specific [place] 1.015 Urine Protein (NEG-TRACE) Urine Glucose (UA) mg/dL (NEG) Urine Ketones (Stick) mg/dL (NEG) Urine Blood (NEG) Urine Nitrite (NEG) Urine Bilirubin Neg (NEG) Urine Urobilinogen Dipstick mg/dL (0.2 mg/dL) Urine Leukocyte Esterase (NEG) Urine RBC Occ /HPF (0-2) Urine WBC Occ /HPF (0-4) Urine Squamous Epithelial Cells Occ /LPF Urine Amorphous Sediment Present /HPF Urine Bacteria 0 /HPF (0-FEW) Urine Opiates Screen Neg (NEG) Urine Methadone Screen Neg (NEG) Urine Barbiturates Neg (NEG) Urine Phencyclidine Screen Neg (NEG) Urine Amphetamine/Methamphetamine Neg (NEG) Urine Benzodiazepines Screen Neg (NEG) Urine Cocaine Screen Neg (NEG) Urine Cannabinoids Screen Pos (NEG) Urine Ethyl Alcohol Neg (NEG) POC Urine HCG, Qualitative hcg negative (Negative) EKG EKG [] Radiology/Procedures Radiology/Procedures [] Course & Med Decision Making Course & Med Decision Making Pertinent Labs and Imaging studies reviewed. (See chart for details) Patient elects to leave Martinez in. Suspect urinary retention related to her colitis and irritable bowel complaints. . Patient keep follow-up primary Dr. Frank and urology. Patient keep track of all urine produced a 24-hour period show this record to your primary.. Encourage pt to stop smoking. [] Final Impression Final Impression 1. Complaints of Urinary Retention 2. History of colitis 3. Tobacco and Marijuana Use Dragon Disclaimer Dragon Disclaimer This electronic medical record was generated, in whole or in part, using a voice recognition dictation system. Discharge Summary Visit Information Final Diagnosis Problems Medical Problems: (1) Urinary bladder disorder Status: Acute Brief Hospital Course Allergies Allergies Coded Allergies Type Severity Reaction Last Updated Verified Influenza Virus Vaccines Allergy Mild Hives 02/15/18 Yes pneumococcal vaccine Allergy Mild Hives 02/15/18 Yes Vital Signs Vital Signs Date Time Temp Pulse Resp B/P (MAP) Pulse Ox O2 Delivery O2 Flow Rate FiO2 11/01/18 22:30 98.4 90 18 99 Room Air Lab Results Laboratory Tests Test 11/01/18 22:55 11/01/18 23:06 Urine Collection Type Unknown Urine Color Yellow Urine Clarity Hazy Urine pH 8.5 Urine Specific [place] 1.015 Urine Protein (NEG-TRACE) Urine Glucose (UA) mg/dL (NEG) Urine Ketones (Stick) mg/dL (NEG) Urine Blood (NEG) Urine Nitrite (NEG) Urine Bilirubin Neg (NEG) Urine Urobilinogen Dipstick mg/dL (0.2 mg/dL) Urine Leukocyte Esterase (NEG) Urine RBC Occ /HPF (0-2) Urine WBC Occ /HPF (0-4) Urine Squamous Epithelial Cells Occ /LPF Urine Amorphous Sediment Present /HPF Urine Bacteria 0 /HPF (0-FEW) Urine Opiates Screen Neg (NEG) Urine Methadone Screen Neg (NEG) Urine Barbiturates Neg (NEG) Urine Phencyclidine Screen Neg (NEG) Urine Amphetamine/Methamphetamine Neg (NEG) Urine Benzodiazepines Screen Neg (NEG) Urine Cocaine Screen Neg (NEG) Urine Cannabinoids Screen Pos (NEG) Urine Ethyl Alcohol Neg (NEG) Bedside Urine HCG, Qualitative hcg negative (Negative) Brief Hospital Course Ms. Kerr is a 28 old female who presented with complaints of urinary retention- martinez placed. Discharge Information Condition at Discharge: Improved, Stable Disposition/Orders: D/C to Home Dischare Medications Active Scripts Active Pepcid (Famotidine) 20 Mg Tablet 1 Tab PO BID Colace 2-in-1 Tablet (Sennosides/Docusate Sodium) 1 Each Tablet 1 Each PO QHS PRN Ondansetron Odt (Ondansetron) 4 Mg Tab.rapdis 1 Tab PO PRN Q6-8HRS PRN Levsin-Sl (Hyoscyamine Sulfate) 0.125 Mg Tab.subl 1-2 Tab SL PRN Q4HRS Tramadol Hcl (Tramadol HCl) 50 Mg Tablet 50 Mg PO PRN Q6HRS PRN Ondansetron Odt (Ondansetron) 4 Mg Tab.rapdis 1 Tab PO PRN Q6-8HRS PRN Tramadol Hcl (Tramadol HCl) 50 Mg Tablet 50 Mg PO PRN Q6HRS PRN 10 Days Ciprofloxacin Hcl 500 Mg Tablet 1 Tab PO BID Flagyl (Metronidazole) 250 Mg Tablet 1 Tab PO TID Reported Benadryl (Diphenhydramine Hcl) 25 Mg Capsule 25 Mg PO PRN Q6HRS PRN LAST DOSE GIVEN: HELD IN HOSPITAL NEXT DOSE DUE: RESTART AT HOME NEXT DOSE DUE: DATE: TIME: Ondansetron Odt (Ondansetron) 4 Mg Tab.rapdis 4 Mg PO PRN Q6HRS PRN LAST DOSE GIVEN: YESTURDAY NEXT DOSE DUE: NEEDED NEXT DOSE DUE: DATE: TIME: Fluoxetine Hcl 20 Mg Capsule 20 Mg PO HS LAST DOSE GIVEN: HELD IN HOSPITAL NEXT DOSE DUE: RESTART AT HOME NEXT DOSE DUE: DATE: TIME: Dragon Disclaimer This chart was dictated in whole or in part using Voice Recognition software in a busy, high-work load, and often noisy Emergency Department environment. It may contain unintended and wholly unrecognized errors or omissions. FRANCIS KWONG MD Nov 01, 2018 22:34
[2018-11-01 23:38] LABS: BARBITURATES NEG (NEG); BENZODIAZEPINES NEG (NEG); CANNABINOIDS POS (NEG); COCAINE NEG (NEG); METHADONE NEG (NEG); OPIATES NEG (NEG); PHENCYCLIDINE NEG (NEG)
[2018-11-01 23:41] LABS: AMORPHOUS SEDIMENT,UR PRESENT /HPF; BACTERIA,URINE 0 /HPF (0-FEW); BILIRUBIN,URINE NEG (NEG); CLARITY,URINE HAZY; COLOR,URINE YELLOW; RBC,URINE OCC /HPF (0-2); SQUAMOUS EPITHELIAL CELL,UR OCC /LPF; WBC,URINE OCC /HPF (0-4)
[2018-11-01 23:43] LABS: AMPHETAMINE/METHAMPHETAMINE NEG (NEG)
== END 2018-11-02 00:15 | disposition home or self-care (01) ==
LOC: ER 22:29
DX: R33.9 Retention of urine, unspecified (principal); N32.89 Other specified disorders of bladder; F12.10 Cannabis abuse, uncomplicated; F31.9 Bipolar disorder, unspecified; Z87.891 Personal history of nicotine dependence; Z88.7 Allergy status to serum and vaccine
CPT/HCPCS: 36415; 51702; 80307; 81001; 81025; 99284

== ENCOUNTER 2018-11-05 12:28 | Emergency (ER) | payer OTHER ==
[~2018-11-05] VITALS: Ht 149.9 cm; Wt 53.9 kg
[2018-11-05 12:28] VITALS: BP 120/78
--- NOTE | 2018-11-05 12:54 | PHYS DOC ---
Past History Past Medical History: Bipolar, Other Past Surgical History: Cholecystectomy Smoking: Cigarettes, Quit Less Than 1 Year Alcohol Use: None Drug Use: Marijuana Adult General Chief Complaint Chief Complaint: URINE CATHETER PROBLEM HPI HPI Patient is a 28-year-old female who presents with difficulty cleaning her urinary catheter. She had a urinary catheter placed on 11/01/2018. She has since started her menstrual cycle. Denies any fever or back or flank pain. Had increased pain when her dog jumped on the tubing with the urinary catheter. Denies any blood in the urine.[] Review of Systems Review of Systems Constitutional: Denies fever or chills [] Eyes: Denies change in visual acuity, redness, or eye pain [] HENT: Denies nasal congestion or sore throat [] Respiratory: Denies cough or shortness of breath [] Cardiovascular: No chest pain or palpitations[] GI: Denies abdominal pain, nausea, vomiting, bloody stools or diarrhea [] : The history of present illness[] Musculoskeletal: Denies back pain or joint pain [] Integument: Denies rash or skin lesions [] Neurologic: Denies headache, focal weakness or sensory changes [] Endocrine: Denies polyuria or polydipsia [] All other systems were reviewed and found to be within normal limits, except as documented in this note. Allergies Allergies Allergies Coded Allergies Type Severity Reaction Last Updated Verified Influenza Virus Vaccines Allergy Mild Hives 02/15/18 Yes pneumococcal vaccine Allergy Mild Hives 02/15/18 Yes Physical Exam Physical Exam Constitutional: Well developed, well nourished, no acute distress, non-toxic appearance. [] HENT: Normocephalic, atraumatic, bilateral external ears normal, oropharynx moist, no oral exudates, nose normal. [] Eyes: PERRLA, EOMI, conjunctiva normal, no discharge. [] Neck: Normal range of motion, no tenderness, supple, no stridor. [] Cardiovascular:Heart rate is tachycardic in the low 100s, with a regular rhythm , no murmur [] Lungs & Thorax: Bilateral breath sounds clear to auscultation [] Abdomen: Bowel sounds normal, soft, no tenderness, no masses, no pulsatile masses. [] Skin: Warm, dry, no erythema, no rash. [] Back: No tenderness, no CVA tenderness. [] Extremities: No tenderness, no cyanosis, no clubbing, ROM intact, no edema. [] Neurologic: Alert and oriented X 3, normal motor function, normal sensory function, no focal deficits noted. [] Psychologic: Affect normal, judgement normal, mood normal. [] EKG EKG [] Radiology/Procedures Radiology/Procedures [] Course & Med Decision Making Course & Med Decision Making Pertinent Labs and Imaging studies reviewed. (See chart for details) Medical decision making: Review of the previous visit, it appears that the urinary catheter was for patient comfort. Does not show that there was any significant urinary retention so we'll remove the catheter.[] Dragon Disclaimer Dragon Disclaimer This electronic medical record was generated, in whole or in part, using a voice recognition dictation system. Departure Departure: Impression: Primary Impression: Urinary catheter insertion/adjustment/removal Disposition: 01 HOME, SELF-CARE Condition: IMPROVED Referrals: JELANI MAYER MD (PCP) Follow-up in 2 days Patient Instructions: Indwelling Urinary Catheter Care-Brief Additional Instructions: Drink plenty of fluids. Follow-up with your regular doctor in 2 days. Return to the ER if unable to urinate or any other concerns. ELYSE LIU DO Nov 05, 2018 12:54
== END 2018-11-05 12:57 | disposition home or self-care (01) ==
LOC: ER 12:28
DX: T83.098A Other mechanical complication of other urinary catheter, initial encounter (principal); F31.9 Bipolar disorder, unspecified; Z87.891 Personal history of nicotine dependence; Z90.49 Acquired absence of other specified parts of digestive tract; Z88.7 Allergy status to serum and vaccine
CPT/HCPCS: 51701; 99284-25

== ENCOUNTER 2018-12-06 08:53 | Emergency (ER) | payer OTHER ==
[~2018-12-06] VITALS: Ht 149.9 cm; Wt 49.5 kg
--- NOTE | 2018-12-06 09:36 | PHYS DOC ---
Past History Past Medical History: Bipolar, Other Past Surgical History: Cholecystectomy, Other Smoking: Cigarettes, Quit Less Than 1 Year Alcohol Use: None Drug Use: Marijuana Adult General Chief Complaint Chief Complaint: NAUSEA/VOMITING/DIARRHEA HPI HPI Patient is a 28 year old F here for nausea, vomiting, and diarrhea. She states that she has been having symptoms for the last week. She last vomited this morning around 8am. She also had diarrhea today which was watery in nature without blood. She states she is also having abdominal pain, mostly located in t he epigastric region with some radiation downwards. She describes the pain as stabbing and achy. She does not know if she has had any fevers. She denies chest pain. Her neighbor was recently sick with a similar illness and spent time with the patient prior to her getting sick, Review of Systems Review of Systems Constitutional: Denies fever or chills [] Eyes: Denies change in visual acuity, redness, or eye pain [] HENT: Denies nasal congestion or sore throat [] Respiratory: Denies cough or shortness of breath [] Cardiovascular: No additional information not addressed in HPI [] GI: Reports abdominal pain, nausea, vomiting, bloody stools or diarrhea [] : Denies dysuria or hematuria [] Musculoskeletal: Denies back pain or joint pain [] Integument: Denies rash or skin lesions [] Neurologic: Denies headache, focal weakness or sensory changes [] Endocrine: Denies polyuria or polydipsia [] All other systems were reviewed and found to be within normal limits, except as documented in this note. Allergies Allergies Allergies Coded Allergies Type Severity Reaction Last Updated Verified Influenza Virus Vaccines Allergy Mild Hives 02/15/18 Yes pneumococcal vaccine Allergy Mild Hives 02/15/18 Yes Physical Exam Physical Exam Constitutional: Well developed, well nourished, no acute distress, non-toxic appearance. [] HENT: Normocephalic, atraumatic, bilateral external ears normal, oropharynx moist, no oral exudates, nose normal. [] Eyes: PERRLA, EOMI, conjunctiva normal, no discharge. [] Neck: Normal range of motion, no tenderness, supple, no stridor. [] Cardiovascular:Heart rate regular rhythm, no murmur [] Lungs & Thorax: Bilateral breath sounds clear to auscultation [] Abdomen: Bowel sounds normal, soft, diffuse tenderness. Skin: Warm, dry, no erythema, no rash. [] Back: No tenderness, no CVA tenderness. [] Extremities: No tenderness, no cyanosis, no clubbing, ROM intact, no edema. [] Neurologic: Alert and oriented X 3, normal motor function, normal sensory function, no focal deficits noted. [] Psychologic: Affect normal, judgement normal, mood normal. [] Current Patient Data Vital Signs Vital Signs Date Time Temp Pulse Resp B/P (MAP) Pulse Ox O2 Delivery O2 Flow Rate FiO2 12/06/18 09:09 97.7 99 18 96 Room Air EKG EKG [] Radiology/Procedures Radiology/Procedures [] Course & Med Decision Making Course & Med Decision Making Pertinent Labs and Imaging studies reviewed. (See chart for details) []Labs are essentially unremarkable patient feels better in the emergency room after the above treatment I suspect viral gastroenteritis given her clinical syndrome as well as the specific contact with a neighbor patient has a history of eosinophilic esophagitis as well as a prior history of which she calls possibly IBD workup seems to be in progress from what I can tell from her no obvious acute pathology identified in the emergency room however she was very eager to go home and was discharged in stable condition prescription for Zofran return precautions were discussed for any increasing migrating or worsening pain or other symptoms like that. Dragon Disclaimer Dragon Disclaimer This electronic medical record was generated, in whole or in part, using a voice recognition dictation system. Departure Departure: Impression: Primary Impression: Nausea vomiting and diarrhea Disposition: HOME, SELF-CARE Condition: STABLE Referrals: JELANI MAYER MD (PCP) Scripts Ondansetron Hcl (ZOFRAN) 4 Mg Tablet 1 TAB PO Q6HRS for NAUSEA, #10 TAB Prov: ASHWIN DUNBAR MD 12/06/18 ASHWIN DUNBAR MD December 06, 2018 09:36
[2018-12-06] MEDS: ONDANSETRON PF 4 MG/2 ML VIAL. IV ONE (10:15)
[2018-12-06] MEDS: IV NORMAL SALINE 1,000ML 1,000 ML IV ONE (10:15)
[2018-12-06 10:17] LABS: U PREG PATIENT NEGATIVE (NEG)
[2018-12-06 10:20] LABS: BACTERIA,URINE MANY /HPF (0-FEW); BILIRUBIN,URINE NEG (NEG); CLARITY,URINE HAZY; COLOR,URINE YELLOW; GLUCOSE,URINE NEG (NEG); NITRITE,URINE NEG (NEG); RBC,URINE 0 /HPF (0-2); SQUAMOUS EPITHELIAL CELL,UR MANY /LPF; UROBILINOGEN,URINE 0.2 mg/dL (0.2 mg/dL)
[2018-12-06 10:29] LABS: BASO # 0.1 x10^3/uL (0.0-0.2); BASO % 1 % (0-3); EOS # 0.2 x10^3/uL (0.0-0.7); EOS % 2 % (0-3); HEMATOCRIT 39.6 % (36.0-47.0); HEMOGLOBIN 13.1 g/dL (12.0-15.5); LYMPH # 1.5 x10^3/uL (1.0-4.8); LYMPH % 18 % (24-48); MEAN CORPUSCULAR HEMOGLOBIN 30 pg (25-35); MEAN CORPUSCULAR HGB CONC 33 g/dL (31-37); MEAN CORPUSCULAR VOLUME 91 fL (79-100); MONO # 0.4 x10^3/uL (0.0-1.1); MONO % 4 % (0-9); NEUT # 6.4 x10^3uL (1.8-7.7); NEUT % 75 % (31-73); PLATELET COUNT 303 x10^3/uL (140-400); RED BLOOD COUNT 4.34 x10^6/uL (3.50-5.40); RED CELL DISTRIBUTION WIDTH 18.2 % (11.5-14.5); WHITE BLOOD COUNT 8.5 x10^3/uL (4.0-11.0)
[2018-12-06 10:38] LABS: ALBUMIN/GLOBULIN RATIO 1.3 (1.0-1.7); CALCIUM 9.6 mg/dL (8.5-10.1); CREATININE 0.5 mg/dL (0.6-1.0); GFR 145.9; POTASSIUM 4.2 mmol/L (3.5-5.1); TOTAL BILIRUBIN 0.1 mg/dL (0.2-1.0); TOTAL PROTEIN 7.2 g/dL (6.4-8.2)
[2018-12-06] MEDS: KETOROLAC 15 MG/ML VIAL. IV ONE (11:09)
[2018-12-06] MEDS ORDERED: ONDA4TAB7 PO (11:10)
[2018-12-06 11:19] VITALS: BP 116/92
== END 2018-12-06 11:19 | disposition home or self-care (01) ==
LOC: ER 08:53
DX: R11.2 Nausea with vomiting, unspecified (principal); R19.7 Diarrhea, unspecified; R10.13 Epigastric pain; F31.9 Bipolar disorder, unspecified; Z90.49 Acquired absence of other specified parts of digestive tract; Z87.891 Personal history of nicotine dependence; Z88.7 Allergy status to serum and vaccine
CPT/HCPCS: 36415; 80053; 81001; 81025; 83690; 85025; 87086; 96361; 96374; 96375; J1885; J2405; 99284-25; 99285-25; J7030

== ENCOUNTER 2019-03-28 04:22 | Emergency (ER) | payer MEDICAID, OTHER ==
[~2019-03-28] VITALS: Ht 149.9 cm; Wt 49.5 kg
[2019-03-28 04:22] VITALS: BP 116/86
[~2019-03-28 04:22] MED LIST changes: +ONDA4TAB7 PO
--- NOTE | 2019-03-28 05:07 | PHYS DOC ---
Past History Past Medical History: Bipolar, Other Past Surgical History: Cholecystectomy, Other Smoking: Cigarettes, Quit Less Than 1 Year Alcohol Use: None Drug Use: Marijuana Adult General Chief Complaint Chief Complaint: URINARY RETENTION HPI HPI Patient is a 28 yo f p/w bladder spasms. pt has hx of interstitial cystitis and deals with bladder spasms on a regular basis. they are worse the last couple of days no fever, feels like really needs to urinate a lot. no feve.r oxybutynin is not helping. Review of Systems Review of Systems Constitutional: Denies fever or chills [] Eyes: Denies change in visual acuity, redness, or eye pain [] HENT: Denies nasal congestion or sore throat [] Respiratory: Denies cough or shortness of breath [] Cardiovascular: No additional information not addressed in HPI [] GI: Denies abdominal pain, nausea, vomiting, bloody stools or diarrhea [] : Denies dysuria or hematuria [] Musculoskeletal: Denies back pain or joint pain [] Integument: Denies rash or skin lesions [] Neurologic: Denies headache, focal weakness or sensory changes [] Endocrine: Denies polyuria or polydipsia [] All other systems were reviewed and found to be within normal limits, except as documented in this note. Current Medications Current Medications Current Medications Medications (Trade) Dose Ordered Sig/M[place]on[place] Start Time Stop Time Status Last Admin Dose Admin Lorazepam (Ativan Inj) 2 mg 1X ONCE 03/28/19 05:00 03/28/19 05:01 UNV Allergies Allergies Allergies Coded Allergies Type Severity Reaction Last Updated Verified Influenza Virus Vaccines Allergy Mild Hives 02/15/18 Yes pneumococcal vaccine Allergy Mild Hives 02/15/18 Yes Physical Exam Physical Exam Constitutional: Well developed, well nourished, no acute distress, non-toxic appearance. [] HENT: Normocephalic, atraumatic, bilateral external ears normal, oropharynx moist, no oral exudates, nose normal. [] Eyes: PERRLA, EOMI, conjunctiva normal, no discharge. [] Neck: Normal range of motion, no tenderness, supple, no stridor. [] Abdomen: Bowel sounds normal, soft, suprapubic ttp Skin: Warm, dry, no erythema, no rash. [] Back: No tenderness, no CVA tenderness. [] Extremities: No tenderness, no cyanosis, no clubbing, ROM intact, no edema. [] Neurologic: Alert and oriented X 3 antalgic gait and decreased muscle mass lower extremities psych pt is pacing back and forth from bathroom. EKG EKG [] Radiology/Procedures Radiology/Procedures [] Course & Med Decision Making Course & Med Decision Making Pertinent Labs and Imaging studies reviewed. (See chart for details) []hx of cerebral palsy , interstitial cystitis p/w bladder spasms very little urine difficult to do u/a, udip upreg ativan given try benadryl or hydroxyzine pt has f/u with urology in a couple days Dragon Disclaimer Dragon Disclaimer This electronic medical record was generated, in whole or in part, using a voice recognition dictation system. Departure Departure: Impression: Primary Impression: Dysuria Disposition: HOME, SELF-CARE Condition: STABLE Referrals: JELANI MAYER MD (PCP) Scripts Hydroxyzine Hcl (HYDROXYZINE HCL) 25 Mg Tablet 1 TAB PO BID PRN for BLADDER SPASM, #20 TAB Prov: ASHWIN DUNBAR MD 03/28/19 Diazepam (VALIUM) 5 Mg Tablet 5 MG PO BID PRN for AGITATION, #10 TAB Prov: ASHWIN DUNBAR MD 03/28/19 ASHWIN DUNBAR MD Mar 28, 2019 05:07
[2019-03-28 05:48] LABS: BILIRUBIN,URINE NEG (NEG); CLARITY,URINE HAZY; COLOR,URINE YELLOW; GLUCOSE,URINE NEG (NEG); NITRITE,URINE NEG (NEG); UROBILINOGEN,URINE 0.2 mg/dL (0.2 mg/dL)
[2019-03-28 05:49] LABS: BACTERIA,URINE FEW /HPF (0-FEW); RBC,URINE OCC /HPF (0-2); SQUAMOUS EPITHELIAL CELL,UR FEW /LPF; WBC,URINE OCC /HPF (0-4)
[2019-03-28] MEDS ORDERED: DIAZ5TAB PO (05:53)
[2019-03-28] MEDS ORDERED: HYDR25TA PO (05:54)
[2019-03-29] MEDS ORDERED: DIPH1TAB PO (03:43)
[2019-03-29] MEDS ORDERED: ONDA4TAB7 PO (03:43)
[2019-03-29] MEDS ORDERED: TRAM50TA PO (03:43)
== END 2019-03-28 06:00 | disposition home or self-care (01) ==
LOC: ER 04:22
DX: R30.0 Dysuria (principal); N32.89 Other specified disorders of bladder; G80.9 Cerebral palsy, unspecified; Z90.49 Acquired absence of other specified parts of digestive tract; Z88.7 Allergy status to serum and vaccine
CPT/HCPCS: 81001; 81025; 96372; 99283; J2060

== ENCOUNTER 2019-03-29 00:01 | Emergency (ER) | payer MEDICAID ==
[~2019-03-29] VITALS: Ht 149.9 cm; Wt 49.5 kg
[2019-03-29 00:01] VITALS: BP 134/83
[~2019-03-29 00:01] MED LIST changes: +DIAZ5TAB PO; +HYDR25TA PO
--- NOTE | 2019-03-29 00:48 | PHYS DOC ---
Past History Past Medical History: Bipolar, Other Past Surgical History: Cholecystectomy, Other Smoking: Cigarettes, Quit Less Than 1 Year Alcohol Use: None Drug Use: Marijuana Adult General Chief Complaint Chief Complaint: ABDOMINAL PAIN HPI HPI Patient is a 28-year-old female who presents with complaint of left lower quadrant abdominal pain with vomiting and diarrhea for the last few days. Patient states that pain is progressively getting worse and currently she rates the pain at a 9 out of 10. She states that nothing improves the pain. She hasn't been able to keep anything down for the last few days due to the vomiting.[] Review of Systems Review of Systems Constitutional: Positive fever and chills [] Respiratory: Denies cough or shortness of breath [] Cardiovascular: No additional information not addressed in HPI [] GI: Complains of left lower abdominal pain with vomiting and diarrhea [] : Denies dysuria or hematuria [] Neurologic: Denies headache, focal weakness or sensory changes [] All other systems were reviewed and found to be within normal limits, except as documented in this note. Current Medications Current Medications Current Medications Medications (Trade) Dose Ordered Sig/Maldonado Start Time Stop Time Status Last Admin Dose Admin Fentanyl Citrate (Fentanyl 2ml Vial) 50 mcg PRN Q15MIN PRN 03/29/19 00:30 03/30/19 00:29 Ondansetron HCl (Zofran) 4 mg 1X ONCE 03/29/19 01:00 03/29/19 01:01 Sodium Chloride 1,000 ml @ 1,000 mls/hr Q1H 03/29/19 01:00 03/29/19 01:59 Allergies Allergies Allergies Coded Allergies Type Severity Reaction Last Updated Verified Influenza Virus Vaccines Allergy Mild Hives 02/15/18 Yes pneumococcal vaccine Allergy Mild Hives 02/15/18 Yes Physical Exam Physical Exam Constitutional: Well developed, well nourished, no acute distress, non-toxic appearance. [] HENT: Normocephalic, atraumatic, bilateral external ears normal, oropharynx dry, no oral exudates, nose normal. [] Eyes: PERRLA, EOMI, conjunctiva normal, no discharge. [] Neck: Normal range of motion, no tenderness, supple, no stridor. [] Cardiovascular:Heart rate regular rhythm, no murmur [] Lungs & Thorax: Bilateral breath sounds clear to auscultation [] Abdomen: Bowel sounds diminished, soft, with moderate left lower quadrant tenderness. [] Skin: Warm, dry, no erythema, no rash. [] Extremities: No tenderness, no cyanosis, no clubbing, ROM intact, no edema. [] Neurologic: Alert and oriented X 3, no focal deficits noted. [] EKG EKG [] Radiology/Procedures Radiology/Procedures [] Impressions: PROCEDURE: CT ABDOMEN PELVIS WO CONTRAST CT abdomen and pelvis without contrast: Reason for examination: Left-sided abdominal pain with nausea, vomiting and diarrhea. Loss of appetite. Helical images were obtained through the abdomen and pelvis with no intravenous or oral contrast administered. Reconstruction was performed in sagittal and coronal planes. Exposure: One or more of the following individualized dose reduction techniques were utilized for this examination: 1. Automated exposure control 2. Adjustment of the mA and/or kV according to patient size 3. Use of iterative reconstruction technique. There is some mild infiltrate or atelectasis posteriorly at the left lung base. The heart size is normal with no pericardial effusion. No abnormality seen at the liver, spleen, adrenal glands or pancreas. Gallbladder surgically absent. The abdominal aorta and inferior vena cava show no gross abnormalities. There is a moderate size hiatal hernia present. The wall of the stomach is not thickened. No gastric obstruction is seen. The small intestinal tract shows no abnormal dilatation or wall thickening or evidence of bowel obstruction. There is no evidence of diverticulosis or diverticulitis. No abnormality seen at the appendix. The kidneys show no renal masses, renal calculi, hydronephrosis or evidence of obstructive uropathy. No abnormality seen at the bladder, uterus or ovaries. No free fluid or free air seen in the abdomen or pelvis. There appears be a pars defect on the right at the L3 vertebral body which are sclerotic and chronic in appearance. No acute bony abnormalities are seen. IMPRESSION: Moderate size hiatal hernia. Mild infiltrates or atelectasis at the left lung base. Chronic pars defect on the right at the L3 level. No other acute abnormality seen in the abdomen or pelvis. Electronically signed by: Arlen Ochoa MD (03/29/2019 2:57 AM) [facility] DICTATED AND SIGNED BY: ARLEN OCHOA MD DATE: 03/29/19 0257 Course & Med Decision Making Course & Med Decision Making Pertinent Labs and Imaging studies reviewed. (See chart for details) [] Dragon Disclaimer Dragon Disclaimer This electronic medical record was generated, in whole or in part, using a voice recognition dictation system. Departure Departure: Impression: Primary Impression: Nausea vomiting and diarrhea Additional Impression: Abdominal pain Disposition: 01 HOME, SELF-CARE Condition: STABLE Referrals: JELANI MAYER MD (PCP) Patient Instructions: Abdominal Pain, Diarrhea, Nausea and Vomiting Scripts Diphenoxylate Hcl/Atropine (LOMOTIL TABLET) 1 Each Tablet 1 TAB PO TID PRN for DIARRHEA, #15 TAB Prov: MARCELLA CASTRO Jr. DO 03/29/19 Ondansetron Hcl (ZOFRAN) 4 Mg Tablet 4 MG PO Q6HRS PRN for NAUSEA, #12 TAB Prov: MARCELLA CASTRO Jr. DO 03/29/19 Tramadol Hcl (TRAMADOL HCL) 50 Mg Tablet 50 MG PO PRN Q6HRS PRN for PAIN, #12 TAB Prov: MARCELLA CASTRO Jr. DO 03/29/19 Problem Qualifiers Additional Impression: Abdominal pain Abdominal location: generalized Qualified Codes: R10.84 - Generalized abdominal pain MARCELLA CASTRO Jr. DO Mar 29, 2019 00:48
[2019-03-29] MEDS ORDERED: ONDANSETRON PF 4 MG/2 ML VIAL. IV ONE (01:00)
[2019-03-29] MEDS ORDERED: IV NORMAL SALINE 1,000ML 1,000 ML IV SCH (01:00)
[2019-03-29 01:18] LABS: BASO % 0 % (0-3); EOS # 0.1 x10^3/uL (0.0-0.7); EOS % 2 % (0-3); HEMATOCRIT 36.4 % (36.0-47.0); HEMOGLOBIN 12.3 g/dL (12.0-15.5); LYMPH % 30 % (24-48); MEAN CORPUSCULAR HEMOGLOBIN 32 pg (25-35); MEAN CORPUSCULAR HGB CONC 34 g/dL (31-37); MEAN CORPUSCULAR VOLUME 95 fL (79-100); MONO # 0.4 x10^3/uL (0.0-1.1); MONO % 6 % (0-9); NEUT # 4.3 x10^3uL (1.8-7.7); NEUT % 63 % (31-73); PLATELET COUNT 266 x10^3/uL (140-400); RED BLOOD COUNT 3.86 x10^6/uL (3.50-5.40); RED CELL DISTRIBUTION WIDTH 12.3 % (11.5-14.5); WHITE BLOOD COUNT 6.8 x10^3/uL (4.0-11.0)
[2019-03-29 01:33] LABS: ALBUMIN 3.8 g/dL (3.4-5.0); CALCIUM 9.1 mg/dL (8.5-10.1); CREATININE 0.6 mg/dL (0.6-1.0); GFR 118.2; POTASSIUM 3.3 mmol/L (3.5-5.1); TOTAL BILIRUBIN 0.3 mg/dL (0.2-1.0); TOTAL PROTEIN 7.5 g/dL (6.4-8.2)
[2019-03-29] MEDS ORDERED: diphenhydrAMINE 50 MG/ML VIAL IVP ONE ×2 (02:00→03:15)
--- NOTE | 2019-03-29 03:00 | RAD ---
CT abdomen and pelvis without contrast: Reason for examination: Left-sided abdominal pain with nausea, vomiting and diarrhea. Loss of appetite. Helical images were obtained through the abdomen and pelvis with no intravenous or oral contrast administered. Reconstruction was performed in sagittal and coronal planes. Exposure: One or more of the following individualized dose reduction techniques were utilized for this examination: 1. Automated exposure control 2. Adjustment of the mA and/or kV according to patient size 3. Use of iterative reconstruction technique. There is some mild infiltrate or atelectasis posteriorly at the left lung base. The heart size is normal with no pericardial effusion. No abnormality seen at the liver, spleen, adrenal glands or pancreas. Gallbladder surgically absent. The abdominal aorta and inferior vena cava show no gross abnormalities. There is a moderate size hiatal hernia present. The wall of the stomach is not thickened. No gastric obstruction is seen. The small intestinal tract shows no abnormal dilatation or wall thickening or evidence of bowel obstruction. There is no evidence of diverticulosis or diverticulitis. No abnormality seen at the appendix. The kidneys show no renal masses, renal calculi, hydronephrosis or evidence of obstructive uropathy. No abnormality seen at the bladder, uterus or ovaries. No free fluid or free air seen in the abdomen or pelvis. There appears be a pars defect on the right at the L3 vertebral body which are sclerotic and chronic in appearance. No acute bony abnormalities are seen. IMPRESSION: Moderate size hiatal hernia. Mild infiltrates or atelectasis at the left lung base. Chronic pars defect on the right at the L3 level. No other acute abnormality seen in the abdomen or pelvis. Electronically signed by: Arlen Vazquez MD (03/29/2019 2:57 AM) [facility]
[2019-03-29] MEDS ORDERED: TRAM50TA PO (03:43)
[2019-03-29] MEDS ORDERED: ONDA4TAB7 PO (03:43)
[2019-03-29] MEDS ORDERED: DIPH1TAB PO (03:43)
== END 2019-03-29 03:49 | disposition home or self-care (01) ==
LOC: ER 00:01
DX: R19.7 Diarrhea, unspecified (principal); R11.2 Nausea with vomiting, unspecified; R10.84 Generalized abdominal pain; Z90.49 Acquired absence of other specified parts of digestive tract; Z87.891 Personal history of nicotine dependence; Z88.7 Allergy status to serum and vaccine
CPT/HCPCS: 36415; 74176; 80053; 83690; 85025; 96361; 96374; 96375; 96376; 99285; J1200; J2405; J3010; J7030

== ENCOUNTER 2019-08-17 16:14 | Emergency (ER) | payer MEDICAID ==
[~2019-08-17] VITALS: Ht 149.9 cm; Wt 49.5 kg
[~2019-08-17 16:14] MED LIST changes: -BARIUM SULFATE 2.1% 450 ML SUSP PO ONE; -HYOS0.1279 PO; -OXYB5TAB10 PO; -SULF1TAB24 PO
[2019-08-17] MEDS ORDERED: LIDOCAINE 2% VISCOUS 15 ML SOLUTION. SWSW ONE (17:30)
[2019-08-17] MEDS ORDERED: HYOS0.1279 PO (18:11)
[2019-08-17] MEDS ORDERED: OXYB5TAB10 PO (18:11)
--- NOTE | 2019-08-17 18:12 | PHYS DOC ---
Past History Past Medical History: Bipolar, Other Additional Past Medical Histor: Cerebral palsy, IBD, Painful bladder syndrome ( I.C.) Past Surgical History: Cholecystectomy, Other Additional Past Surgical Histo: suprapubic, colostomy Smoking: Cigarettes, Quit Less Than 1 Year Alcohol Use: None Drug Use: Marijuana Adult General Chief Complaint Chief Complaint: URINARY RETENTION HPI HPI Patient is a 2-year-old female with history of suprapubic Mcmullen catheter presented to ER today to have her catheter replaced because it became clogged today. Patient denied any fever, no abdominal pain. She also ran out of her oxybutynin and hyoscyamine. She would like a refill for these medications. All other ROS is negative unless otherwise noted in HPI Review of Systems Review of Systems See above Current Medications Current Medications Current Medications Medications (Trade) Dose Ordered Sig/Maldonado Start Time Stop Time Status Last Admin Dose Admin Lidocaine HCl (Viscous Lidocaine) 15 ml 1X ONCE 08/17/19 17:30 08/17/19 17:31 DC 08/17/19 16:58 15 ML Allergies Allergies Allergies Coded Allergies Type Severity Reaction Last Updated Verified iodine Allergy Intermediate 03/29/19 Yes Influenza Virus Vaccines Allergy Mild Hives 02/15/18 Yes pneumococcal vaccine Allergy Mild Hives 02/15/18 Yes Physical Exam Physical Exam See above Constitutional: Well developed, well nourished, no acute distress, non-toxic appearance. [] HENT: Normocephalic, atraumatic, bilateral external ears normal, oropharynx moist, no oral exudates, nose normal. [] Eyes: PERRLA, EOMI, conjunctiva normal, no discharge. [] Neck: Normal range of motion, no tenderness, supple, no stridor. [] Cardiovascular:Heart rate regular rhythm, no murmur [] Lungs & Thorax: Bilateral breath sounds clear to auscultation [] Abdomen: Bowel sounds normal, soft, no tenderness, no masses, no pulsatile masses. [] Skin: Warm, dry, no erythema, no rash. [] Back: No tenderness, no CVA tenderness. [] Extremities: No tenderness, Neurologic: Alert and oriented X 3, Psychologic: Affect normal, judgement normal, mood normal. [] Current Patient Data Vital Signs Vital Signs Date Time Temp Pulse Resp B/P (MAP) Pulse Ox O2 Delivery O2 Flow Rate FiO2 08/17/19 16:40 99.0 99 20 96 Room Air EKG EKG [] Radiology/Procedures Radiology/Procedures [] Course & Med Decision Making Course & Med Decision Making Pertinent Labs and Imaging studies reviewed. (See chart for details) [] Dragon Disclaimer Dragon Disclaimer This electronic medical record was generated, in whole or in part, using a voice recognition dictation system. Departure Departure: Impression: Primary Impression: UTI (urinary tract infection) Additional Impressions: Mcmullen catheter problem Medication refill Disposition: HOME/RESIDENCE PRIOR TO ADM Condition: STABLE Referrals: JELANI MAYER MD (PCP) Patient Instructions: Mcmullen Catheter Care, Adult, Urinary Tract Infection Scripts Sulfamethoxazole/Trimethoprim (BACTRIM DS TABLET) 1 Each Tablet 1 TAB PO BID for uti for 7 Days, #14 TAB 0 Refills Prov: JORGE BUCIO DO 08/17/19 Oxybutynin Chloride (OXYBUTYNIN CHLORIDE) 5 Mg Tablet 5 MG PO TID for BLADDER SPASM, #90 TAB Prov: JORGE BUCIO DO 08/17/19 Hyoscyamine Sulfate (HYOSCYAMINE SULFATE) 0.125 Mg Tablet 1 TAB PO QID PRN for BLADDER SPASM, #30 TAB 0 Refills Prov: JORGE BUCIO DO 08/17/19 Problem Qualifiers JORGE BUCIO DO Aug 17, 2019 18:12
[2019-08-17 18:17] LABS: BACTERIA,URINE MOD /HPF (0-FEW); BILIRUBIN,URINE NEG (NEG); CLARITY,URINE TURBID; COLOR,URINE AMBER; GLUCOSE,URINE NEG (NEG); NITRITE,URINE NEG (NEG); RBC,URINE 20-40 /HPF (0-2); WBC,URINE 20-40 /HPF (0-4)
[2019-08-17] MEDS ORDERED: SULF1TAB24 PO (18:25)
[2019-08-17 18:40] VITALS: BP 128/71
== END 2019-08-17 18:40 | disposition home or self-care (01) ==
LOC: ER 16:14
DX: T83.098A Other mechanical complication of other urinary catheter, initial encounter (principal); N39.0 Urinary tract infection, site not specified; Z76.0 Encounter for issue of repeat prescription; F31.9 Bipolar disorder, unspecified; Z87.891 Personal history of nicotine dependence; Z90.49 Acquired absence of other specified parts of digestive tract; Z93.3 Colostomy status; Z88.7 Allergy status to serum and vaccine; Z88.8 Allergy status to other drugs, medicaments and biological substances
CPT/HCPCS: 51702; 81001; 87086; 99284

== ENCOUNTER → 2019-08-17 | Outpatient (CLI) | payer MEDICAID ==
[~2019-08-17] MED LIST changes: +BARIUM SULFATE 2.1% 450 ML SUSP PO ONE; +DIPH1TAB PO; +FLUO20CA19 PO; -FLUO20CA8 PO; +HYOS0.1279 PO; +OXYB5TAB10 PO; +SULF1TAB24 PO
--- NOTE | 2019-08-17 11:18 | RAD ---
CT ABD PEL W/ORAL CONTRST ONLY dated 08/17/2019 10:00 AM Indication: Abdomen and pelvic pain with rectal pressure.History of colostomy. Comparison: 03/29/2019 Technique: Contiguous axial imaging the abdomen and pelvis performed without the administration of IV contrast. Oral contrast was used. One or more of the following individualized dose reduction techniques were utilized for this examination: 1. Automated exposure control 2. Adjustment of the mA and/or kV according to patient size 3. Use of iterative reconstruction technique Findings: Limited images of the lung bases are clear. Heart size within normal limits. No pleural or pericardial effusion. Small hiatal hernia. Solid abdominal viscera not well evaluated in the absence of contrast material. No apparent attenuation abnormality of the liver or spleen. Pancreas, adrenal glands and kidneys are unremarkable. No stone or hydronephrosis. The gallbladder is surgically absent. There is evidence of prior distal colon resection with left lower quadrant ostomy. Circumferential wall thickening of the ascending colon with. Colonic inflammatory stranding extending to the ostomy site. Colon and small bowel are otherwise unremarkable. No free air. No lymphadenopathy or significant ascites. Images of pelvis show mildly distended urinary bladder with suprapubic catheter in place. There is suture material at the rectosigmoid junction without adjacent free fluid or inflammatory stranding. No definite mass or localized adenopathy. Uterus and adnexa are unremarkable. Bone windows show no acute findings. Mild multilevel spondylosis with unilateral pars defect at L3, unchanged. IMPRESSION: 1. Interval distal colon resection with left lower quadrant ostomy. There is some circumferential wall thickening of the descending colon extending to the ostomy site, nonspecific. Consider infectious or inflammatory colitis and/or postoperative change. 2. Mild distention of the urinary bladder with suprapubic catheter in place. 3. Otherwise no acute findings. Electronically signed by: Eugene Nguyen MD (08/17/2019 11:15 AM) [facility]
== END | disposition home or self-care (01) ==
LOC: CT 09:10
PROVIDERS: ATTEND Colon & Rectal Surgery
DX: K44.9 Diaphragmatic hernia without obstruction or gangrene (principal); N32.89 Other specified disorders of bladder; M47.816 Spondylosis without myelopathy or radiculopathy, lumbar region
CPT/HCPCS: 74176

== ENCOUNTER 2021-03-15 17:06 | Emergency (ER) | payer MEDICAID ==
[~2021-03-15] VITALS: Ht 149.9 cm; Wt 51.0 kg
[~2021-03-15 17:06] MED LIST changes: -CIPR500T PO; +CIPR500T2 PO; -FLUO20CA19 PO; +FLUO20CA20 PO; +HYOS0.1279 PO; +OXYB5TAB10 PO; +SULF1TAB24 PO
[2021-03-15] MEDS ORDERED: NALOXONE 2 MG/2 ML DISP.SYRIN. ONE (17:08)
[2021-03-15] MEDS ORDERED: IV NORMAL SALINE 1,000ML 1,000 ML IV SCH (17:30)
--- NOTE | 2021-03-15 17:32 | EKG ---
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
--- NOTE | 2021-03-15 17:45 | PHYS DOC ---
Past History Past Medical History: Bipolar, Other Additional Past Medical Histor: Cerebral palsy, IBD, Painful bladder syndrome ( I.C.) Past Surgical History: Cholecystectomy, Other Additional Past Surgical Histo: suprapubic, colostomy Smoking: Cigarettes, Quit Less Than 1 Year Alcohol Use: None Drug Use: Marijuana General Adult EDM: Chief Complaint: ALTERED MENTAL STATUS HPI: HPI: 30-year-old female presents via EMS with altered mental status. The patient was unresponsive at home when her family called EMS. Patient is on either a baclofen pump for a fentanyl pump. She had complex abdominal surgery has a urostomy and a colostomy. EMS gave her 2 of Narcan with little effect. Her heart rate increased a little bit but she did not regain consciousness. The entire history comes from EMS as the patient is unable to answer questions. Review of Systems: Review of Systems: Unable to obtain due to mental status Current Medications: Current Meds: Current Medications Medications (Trade) Dose Ordered Sig/Maldonado Start Time Stop Time Status Last Admin Dose Admin Naloxone HCl (Narcan) 4 mg 1X ONCE 03/15/21 18:00 03/15/21 18:01 03/15/21 17:35 4 MG Sodium Chloride 1,000 ml @ 1,530 mls/hr Q40M 03/15/21 17:30 03/15/21 18:30 03/15/21 17:33 1,530 MLS/HR Allergies: Allergies: Allergies Coded Allergies Type Severity Reaction Last Updated Verified iodine Allergy Intermediate 03/29/19 Yes Influenza Virus Vaccines Allergy Mild Hives 02/15/18 Yes pneumococcal vaccine Allergy Mild Hives 02/15/18 Yes Physical Exam: PE: Constitutional: Well developed, well nourished, moderate acute distress. [] HENT: Normocephalic, atraumatic, bilateral external ears normal, oropharynx dry, no oral exudates, nose normal. [] Eyes: PERRLA, EOMI, conjunctiva normal, no discharge. [] Neck: No obvious trauma [] Cardiovascular: Heart rate 45, regular rhythm, no murmur [] Lungs & Thorax: Bilateral breath sounds clear to auscultation [] Abdomen: Colostomy and urostomy in place. [] Skin: Abdominal surgical scars. Warm, dry, no erythema, no rash. [] Back: No obvious signs of trauma. [] Extremities: No tenderness, no cyanosis, no clubbing, ROM intact, no edema. [] Neurologic: Spontaneously moving extremities, retracts to pain. [] Psychologic: Unable to assess [] Current Patient Data: Vital Signs: Vital Signs Date Time Temp Pulse Resp B/P (MAP) Pulse Ox O2 Delivery O2 Flow Rate FiO2 03/15/21 17:21 98.0 42 14 140/52 (81) 98 Room Air EKG: EKG: [] Radiology/Procedures: Radiology/Procedures: [] Heart Score: C/O Chest Pain: N/A Risk Factors: Risk Factors: DM, Current or recent (<one month) smoker, HTN, HLP, family history of CAD, obesity. Risk Scores: Score 0 - 3: 2.5% MACE over next 6 weeks - Discharge Home Score 4 - 6: 20.3% MACE over next 6 weeks - Admit for Clinical Observation Score 7 - 10: 72.7% MACE over next 6 weeks - Early Invasive Strategies Course & Med Decision Making: Course & Med Decision Making Pertinent Labs and Imaging studies reviewed. (See chart for details) The patient's work-up is pending. I am signing the patient out to Dr. Thompson at 1800. [] Sarah Disclaimer: Dragon Disclaimer: This electronic medical record was generated, in whole or in part, using a voice recognition dictation system. Departure Departure: Referrals: JELANI MAYER MD (PCP) PATSY VILLAGRAN DO Mar 15, 2021 17:45
[2021-03-15 17:46] LABS: BASO % 0 % (0-3); EOS % 0 % (0-3); HEMATOCRIT 36.3 % (36.0-47.0); HEMOGLOBIN 11.8 g/dL (12.0-15.5); LYMPH % 15 % (24-48); MEAN CORPUSCULAR HEMOGLOBIN 30 pg (25-35); MEAN CORPUSCULAR HGB CONC 32 g/dL (31-37); MEAN CORPUSCULAR VOLUME 92 fL (79-100); MONO # 0.3 x10^3/uL (0.0-1.1); MONO % 2 % (0-9); NEUT % 82 % (31-73); PLATELET COUNT 282 x10^3/uL (140-400); RED BLOOD COUNT 3.96 x10^6/uL (3.50-5.40); RED CELL DISTRIBUTION WIDTH 15.3 % (11.5-14.5); WHITE BLOOD COUNT 13.4 x10^3/uL (4.0-11.0)
[2021-03-15 17:47] LABS: EOS # 0.1 x10^3/uL (0.0-0.7)
[2021-03-15 17:48] LABS: CALCIUM 9.4 mg/dL (8.5-10.1); CREATININE 0.7 mg/dL (0.6-1.0); GFR 97.6
[2021-03-15 17:54] LABS: ALBUMIN 3.7 g/dL (3.4-5.0); ALBUMIN/GLOBULIN RATIO 0.9 (1.0-1.7); TOTAL BILIRUBIN 0.2 mg/dL (0.2-1.0); TOTAL PROTEIN 7.7 g/dL (6.4-8.2)
[2021-03-15] MEDS ORDERED: NALOXONE 2 MG/2 ML DISP.SYRIN. IV ONE (18:00)
[2021-03-15 18:04] LABS: BILIRUBIN,URINE NEG (NEG); CLARITY,URINE TURBID; COLOR,URINE YELLOW; GLUCOSE,URINE NEG (NEG)
[2021-03-15 18:05] LABS: NITRITE,URINE NEG (NEG); UROBILINOGEN,URINE 0.2 mg/dL (0.2 mg/dL)
[2021-03-15 18:09] LABS: BACTERIA,URINE MANY /HPF (0-FEW); SQUAMOUS EPITHELIAL CELL,UR MOD /LPF
[2021-03-15 18:11] LABS: AMORPHOUS SEDIMENT,UR PRESENT /HPF
[2021-03-15 18:16] LABS: AMPHETAMINE/METHAMPHETAMINE NEG (NEG); BARBITURATES NEG (NEG); BENZODIAZEPINES NEG (NEG); CANNABINOIDS POS (NEG); COCAINE NEG (NEG); METHADONE NEG (NEG); OPIATES NEG (NEG); PHENCYCLIDINE NEG (NEG)
--- NOTE | 2021-03-15 18:17 | RAD ---
INDICATION: Reason: AMS / Spl. Instructions: / History: . COMPARISON: None. TECHNIQUE: Axial CT images obtained through the head. One or more of the following individualized dose reduction techniques were utilized for this examinat ion: 1. Automated exposure control; 2. Adjustment of the mA and/or kV according to patient size; 3 . Use of iterative reconstruction technique. FINDINGS: No hydrocephalus. No acute intracranial hemorrhage. There is some bowing of the nasal septum to the right. There is regions of low density seen within the ventricles and sulci including the lateral ventricles , third and fourth ventricle as well as left sylvian region. No definite acute intracranial hemorrhage. IMPRESSION: * Foci of low density are seen within the ventricles and sulci. One possible cause of this finding i s ruptured dermoid but MRI could further evaluate and confirm that this is secondary to lipids. Electronically signed by: Will Vicente MD (03/15/2021 6:15 PM) [id number]
--- NOTE | 2021-03-15 18:21 | RAD ---
Study: XR CHEST 1V Indication: Altered mental status. Comparison: None. Findings: Central venous catheter via a left subclavian approach terminates within the SVC. No focal airspace infiltrate, pleural effusion or pneumothorax. Unremarkable cardiomediastinal silhou ette and tomer. Impression: No acute radiographic abnormality of the chest. Central venous catheter terminates within the SVC. Electronically signed by: CORDELL BRYANT MD (03/15/2021 6:19 PM) [facility]
--- NOTE | 2021-03-15 18:25 | RAD ---
INDICATION: Reason: AMS / Spl. Instructions: / History: . COMPARISON: August 2019 TECHNIQUE: Axial CT images obtained through the abdomen and pelvis without contrast. One or more of the following individualized dose reduction techniques were utilized for this examinat ion: 1. Automated exposure control; 2. Adjustment of the mA and/or kV according to patient size; 3 . Use of iterative reconstruction technique. FINDINGS: Moderate hiatal hernia which is distended with intraluminal content and appears increased from prior. Abdominal aorta is not aneurysmal. No intrahepatic bile duct dilation. Postcholecystectomy changes. Liver is enlarged. Limited assessment of pancreas without contrast. No perisplenic hematoma. No hydronephrosis. Bilateral ostomy. No dilated loops of small bowel to suggest obstruction. Postoperative changes to the pelvis. There is some stranding of fat in the pelvis which could be postoperative in nature. Pump with tubing seen within the central canal. IMPRESSION: * Interval increase in size of the patient's hiatal hernia which is somewhat distended with intralum inal content at time of exam. * Interval postoperative changes with bilateral ostomy as well as postoperative changes to the pelvi s. * No hydronephrosis. Electronically signed by: Will Vicente MD (03/15/2021 6:22 PM) [id number]
[2021-03-15 18:43] LABS: AMYLASE 51 U/L (25-115); LIPASE 67 U/L (73-393)
[2021-03-15] MEDS ORDERED: VANCOMYCIN 1 GM in IV NORMAL SALINE 250ML 250 ML IV ONE (19:00)
[2021-03-15] MEDS ORDERED: VANCOMYCIN 1 GM VIAL. ONE (19:01)
[2021-03-15] MEDS ORDERED: IV NORMAL SALINE 50ML 50 ML ONE (19:01)
[2021-03-15] MEDS ORDERED: IV NORMAL SALINE 250ML 250 ML ONE (19:01)
[2021-03-15] MEDS ORDERED: cefTRIAXone SODIUM 1 GM VIAL ONE (19:02)
[2021-03-16] MEDS ORDERED: OLANZapine IM 10 MG VIAL. IM ONE (00:30)
[2021-03-16] MEDS ORDERED: diphenhydrAMINE 50 MG/ML VIAL IVP ONE (00:30)
[2021-03-16 04:58] LABS: FECAL OB PT NEGATIVE (NEG)
[2021-03-16] MEDS ORDERED: HALOPERIDOL LACT 5 MG/ML VIAL. IVP ONE ×2 (08:00→13:45)
[2021-03-16] MEDS ORDERED: IV NORMAL SALINE 1,000ML 1,000 ML IV ONE (10:45)
--- NOTE | 2021-03-16 14:27 | EKG ---
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
[2021-03-16 19:56] LABS: BASO % 0 % (0-3); EOS # 0.1 x10^3/uL (0.0-0.7); EOS % 1 % (0-3); HEMATOCRIT 35.4 % (36.0-47.0); HEMOGLOBIN 11.6 g/dL (12.0-15.5); LYMPH # 2.7 x10^3/uL (1.0-4.8); LYMPH % 32 % (24-48); MEAN CORPUSCULAR HEMOGLOBIN 30 pg (25-35); MEAN CORPUSCULAR HGB CONC 33 g/dL (31-37); MEAN CORPUSCULAR VOLUME 91 fL (79-100); MONO # 0.3 x10^3/uL (0.0-1.1); MONO % 4 % (0-9); NEUT # 5.4 x10^3uL (1.8-7.7); NEUT % 64 % (31-73); PLATELET COUNT 260 x10^3/uL (140-400); RED BLOOD COUNT 3.91 x10^6/uL (3.50-5.40); WHITE BLOOD COUNT 8.5 x10^3/uL (4.0-11.0)
[2021-03-16 19:57] LABS: CALCIUM 8.7 mg/dL (8.5-10.1); CREATININE 0.4 mg/dL (0.6-1.0); GFR 186.2; POTASSIUM 3.3 mmol/L (3.5-5.1)
[2021-03-16] MEDS ORDERED: cefTRIAXone SODIUM 1 GM VIAL ONE (20:48)
[2021-03-16] MEDS ORDERED: IV NORMAL SALINE 50ML 50 ML ONE (20:48)
[2021-03-16 21:22] VITALS: BP 129/86
== END 2021-03-16 21:32 | disposition home or self-care (01) ==
LOC: ER 17:06
DX: R41.82 Altered mental status, unspecified (principal); D64.9 Anemia, unspecified; N39.0 Urinary tract infection, site not specified; G89.29 Other chronic pain; R74.02 Elevation of levels of lactic acid dehydrogenase [LDH]; R79.82 Elevated C-reactive protein (CRP); G80.9 Cerebral palsy, unspecified; D72.829 Elevated white blood cell count, unspecified; F31.9 Bipolar disorder, unspecified; Z20.822 Contact with and (suspected) exposure to COVID-19; Z87.440 Personal history of urinary (tract) infections; Z87.891 Personal history of nicotine dependence; Z93.3 Colostomy status; Z88.8 Allergy status to other drugs, medicaments and biological substances; Z88.7 Allergy status to serum and vaccine
CPT/HCPCS: 36415; 70450; 71045; 74176; 80048; 80053; 80307; 81001; 82150; 82274; 82803; 83605; 83690; 84484; 85025; 86140; 87040; 87086; 87426; 87493; 93005; 96361; 96365; 96366; 96367; 96368; 96375; 96376; 99285; J0696; J1200; J1630; J2060; J2310; J3370; J3490; J7030; J7050; U0003